=== PATIENT | male | born 1975 | race Caucasian/White ===

== ENCOUNTER 2017-02-18 13:19 | Inpatient (IN) | payer OTHER ==
[2017-02-18 14:46] VITALS: BMI 32.3
--- NOTE | 2017-02-18 16:02 | HP ---
Admission [facility] Chief Complaint: I AM HERE FOR REHAB FORM ALCOHOL Allergies/Adverse Reactions: Allergies Allergy/AdvReac Type Severity Reaction Status Date / Time No Known Allergies Allergy Verified 02/18/17 15:48 History of Present Illness: THIS 41 YEARS OLD MALE WITH ALCOHOL DEPENDENCE,SEEKING REHAB,LAST DETOX TREATMENT [facility] FROM 02/12/17 TO 02/17/17 COMPLETE DETOX ,SEIZURE AND LACERATION OF TONGUE WEIGHT LOSS ANXIETY,DEPRESSION,PTSD LONGEST PERIOD OF SOBRIETY 2 YEARS - Ebola screening Have you traveled outside of the country in the last 21 days: No (N) Have you had contact with anyone from an Ebola affected area: No Have you been sick,other than usual withdrawal symptoms: No Do you have a fever: No - Review of Systems Constitutional: No Symptoms Reported, Unintentional Wgt. Loss EENT: reports: No Symptoms Reported, Nose Congestion, Other (LACERATION OF TONGUE AND LEFT UPPER LIP) Respiratory: reports: No Symptoms reported Cardiac: reports: No Symptoms Reported GI: reports: No Symptoms Reported : reports: No Symptoms Reported Musculoskeletal: reports: No Symptoms Reported Integumentary: reports: No Symptoms Reported Neuro: reports: No Symptoms reported Endocrine: reports: No Symptoms Reported Hematology: reports: No Symptoms Reported Psychiatric: reports: Anxious (PTSD), Depressed Patient History - Patient Medical History Hx Anemia: No Hx Asthma: No Hx Chronic Obstructive Pulmonary Disease (COPD): No Hx Cancer: No Hx Cardiac Disorders: No Hx Congestive Heart Failure: No Hx Hypertension: Yes (CAN'T REMEMBER THE NAME) Hx Hypercholesterolemia: No Hx Pacemaker: No HX Cerebrovascular Accident: No Hx Seizures: Yes (alcohol related at age 21,LAST SEIZURE 02/12/17) Hx Dementia: No Hx Diabetes: No Hx Gastrointestinal Disorders: No Hx Liver Disease: No Hx Genitourinary Disorders: No Hx Sexually Transmitted Disorders: No Hx Renal Disease (ESRD): No Hx Thyroid Disease: No Hx Human Immunodeficiency Virus (HIV): No (negative LAST 02/10/17) Hx Hepatitis C: No Hx Depression: Yes (ON MED) Hx Suicide Attempt: No Hx Bipolar Disorder: Yes Hx Schizophrenia: No Other Medical History: NO SUICIDAL,NO HOMICIDAL - Patient Surgical History Past Surgical History: No Hx Neurologic Surgery: No Hx Cataract Extraction: No Hx Cardiac Surgery: No Hx Lung Surgery: No Hx Breast Surgery: No Hx Breast Biopsy: No Hx Abdominal Surgery: No Hx Appendectomy: No Hx Cholecystectomy: No Hx Genitourinary Surgery: No Hx Section: No Hx Orthopedic Surgery: No Anesthesia Reaction: No - PPD History Previous Implant?: Yes Documented Results: Positive w/o proof Date: 12/27/14 Results: 0 mm PPD to be Administered?: Yes - Smoking Cessation Smoking history: Current every day smoker Have you smoked in the past 12 months: Yes Aproximately how many cigarettes per day: 2 Hx Chewing Tobacco Use: No Initiated information on smoking cessation: Yes 'Breaking Loose' booklet given: 02/18/17 - Substance & Tx. History Hx Alcohol Use: Yes Hx Substance Use: No Substance Use Type: Alcohol Hx Substance Use Treatment: Yes ([facility] 02/12/17 TO 02/17/17) - Substances Abused Alcohol Route: Oral Frequency: Daily Amount used: 1 [place] Age of first use: 17 Date of Last Use: 02/13/17 Family Disease History - Family Disease History Family Disease History: Heart Disease: Mother (HTN) Admission Physical Exam S - Vital Signs Vital Signs: Vital Signs - 24 hr 02/18/17 14:43 Temperature 97.8 F Pulse Rate 110 H Respiratory 18 Rate Blood Pressure 116/78 - Physical General Appearance: Yes: Within Normal Limits, No Apparent Distress, Appropriately Dressed HEENTM: Yes: Normal ENT Inspection, CEASAR, Pharynx Normal, Other (OLD STICHES LEFT UPPER LIP OLD LACERATION OF THE TONGUE) Respiratory: Yes: Lungs Clear, Normal Breath Sounds, No Respiratory Distress Neck: Yes: Within Normal Limits, Supple, Trachea in good position Breast: Yes: Within Normal Limits Cardiology: Yes: Within Normal Limits, Regular Rhythm, Regular Rate, S1, S2 Abdominal: Yes: Within Normal Limits, Normal Bowel Sounds, Non Tender, Flat, Soft Genitourinary: Yes: Within Normal Limits Back: Yes: Within Normal Limits Musculoskeletal: Yes: Within Normal Limits Extremities: Yes: Within Normal Limits Neurological: Yes: stenciler II-XII NML intact, Fully Oriented, Alert, Motor Strength 5/5 Integumentary: Yes: Within Normal Limits Lymphatic: Yes: Within Normal Limits - Diagnostic (1) Alcohol dependence Current Visit: No Status: Acute (2) Hypertension Current Visit: No Status: Chronic Qualifiers: Hypertension type: essential hypertension Qualified Code(s): I10 - Essential (primary) hypertension (3) Nicotine dependence Current Visit: No Status: Chronic Qualifiers: Nicotine product type: cigarettes Substance use status: uncomplicated Qualified Code(s): F17.210 - Nicotine dependence, cigarettes, uncomplicated (4) PTSD (post-traumatic stress disorder) Current Visit: No Status: Chronic (5) Panic disorder with agoraphobia Current Visit: No Status: Chronic (6) Laceration of tongue Current Visit: Yes Status: Acute Cleared for Admission [facility] - Detox or Rehab Claeared for Rehab Admission: Yes [facility] Breath Alcohol Content Breath Alcohol Content: 0 Urine Drug Screen - Results Drug Screen Negative: No Urine Drug Screen Results: BZO-Benzodiazepines Inpatient Rehab Admission - Initial Determination Are CD services needed?: Yes Free of communicable disease: Yes Not in need of hospitalization: Yes - Rehab Admission Criteria Previous failed treatment: Yes Poor recovery environment: Yes Comorbidities: Yes Patient is meeting Inpatient Rehab admission criteria:: Yes
[2017-02-18] MEDS ORDERED: MAGNESIUM HYDROX 2400MG/30ML ORAL SUSPENSION 30 ML CUP PO PRN (16:15)
[2017-02-18] MEDS ORDERED: P-EPHED 60MG/TRIPROLIDI 2.5MG TABLET PO PRN (16:15)
[2017-02-18] MEDS ORDERED: MENTHOL/PHENOL 1 EACH UD MM PRN (16:15)
[2017-02-18] MEDS ORDERED: LOPERAMIDE HCL 2 MG CAPSULE PO PRN (16:15)
[2017-02-18] MEDS: AMOXICILLIN 500 MG CAPSULE (FP) PO SCH ×2 (21:45→22:00)
[2017-02-18] MEDS: FERROUS SO4 325 MG TABLET (FP) PO SCH (21:45)
[2017-02-18] MEDS: THIAMINE HCL 100 MG TABLET (FP) PO SCH (21:45)
[2017-02-18] MEDS ORDERED: TUBERCULIN PPD 5 TU/0.1ML VIAL ID ONE (21:46)
[2017-02-18] MEDS ORDERED: traZODone HCL 100 MG TABLET (FP) PO ONE (22:15)
[2017-02-19 02:26] LABS: URINE APPEARANCE CLEAR; URINE BILIRUBIN NEGATIVE (NEGATIVE); URINE BLOOD NEGATIVE (NEGATIVE); URINE COLOR YELLOW; URINE GLUCOSE (UA) NEGATIVE (NEGATIVE); URINE KETONE NEGATIVE (NEGATIVE); URINE NITRITE NEGATIVE (NEGATIVE); URINE PROTEIN NEGATIVE (NEGATIVE); URINE UROBILINOGEN 0.2 mg/dL (0.2-1.0)
[2017-02-19] MEDS: AMOXICILLIN 500 MG CAPSULE (FP) PO SCH ×3 (06:27→21:36)
[2017-02-19] MEDS: FERROUS SO4 325 MG TABLET (FP) PO SCH ×2 (07:07→16:53)
[2017-02-19] MEDS: TOLNAFTATE 1% CREAM 15 GM TUBE TP SCH ×2 (07:48→21:36)
[2017-02-19 10:12] LABS: MEAN PLT VOLUME 7.8 fl (7.5-11.1); RDW 14.8 % (11.9-15.9)
[2017-02-19 10:14] LABS: MCH 31.8 pg (25.7-33.7); MCHC 33.6 g/dl (32.0-35.9); MEAN CELL VOLUME 94.8 fl (80-96); PLATELET COUNT 253 K/MM3 (134-434); WHITE BLOOD COUNT 4.8 K/mm3 (4.0-10.0)
[2017-02-19] MEDS: amLODIPine BESYLATE 5 MG TABLET (FP) PO SCH (10:16)
[2017-02-19] MEDS: PRENATAL VITAMINS W/ FOLIC ACID TABLET (FP) PO SCH (10:16)
[2017-02-19] MEDS: ZINC SULFATE 220 MG CAPSULE (FP) PO SCH (10:16)
[2017-02-19] MEDS: SERTRALINE HCL 50 MG TABLET (FP) PO SCH (10:31)
[2017-02-19 10:36] LABS: ALBUMIN 3.4 g/dl (3.4-5.0); ALK PHOS 86 U/L (45-117); ANION GAP 8 (8-16); BILIRUBIN,TOTAL 0.6 mg/dL (0.2-1.0); CALCIUM 8.5 mg/dL (8.5-10.1); CO2 25 mmol/L (21-32); GLUCOSE,RANDOM 119 mg/dL (74-106); SGOT/AST 40 U/L (15-37); SGPT/ALT 50 U/L (12-78); TOT PROT 6.8 g/dl (6.4-8.2)
[2017-02-19] MEDS: IBUPROFEN 400 MG TABLET (FP) PO PRN (11:28)
[2017-02-19 11:41] LABS: URINE LEUK ESTERASE Negative (NEGATIVE)
[2017-02-19] MEDS ORDERED: PNEUMOCOCCAL 23 VACCINE 0.5 ML VIAL IM ONE (12:00)
[2017-02-19] MEDS ORDERED: FLU VACCINE QUAD 60 MCG/0.5 ML (MDV 17-18) IM ONE (12:00)
[2017-02-19] MEDS ORDERED: PNEUMOC 13-VAL CONJ-DIP CRM/PF 0.5 ML DISP.SYRIN IM ONE (12:00)
[2017-02-19] MEDS: hydrOXYzine PAMOATE 25 MG CAPSULE (FP) PO PRN (13:17)
[2017-02-19] MEDS: THIAMINE HCL 100 MG TABLET (FP) PO SCH (21:36)
[2017-02-19] MEDS: traZODone HCL 100 MG TABLET (FP) PO SCH (21:37)
--- NOTE | 2017-02-19 22:36 | EKG ---
Test Reason : Blood Pressure : / mmHG Vent. Rate : 090 BPM Atrial Rate : 090 BPM P-R Int : 162 ms QRS Dur : 092 ms QT Int : 358 ms P-R-T Axes : 067 052 050 degrees QTc Int : 437 ms NORMAL SINUS RHYTHM NORMAL ECG NO PREVIOUS ECGS AVAILABLE Confirmed by YARELY AMADOR MD ([id number]) on 02/19/2017 10:36:00 PM Referred By: Confirmed By:YARELY AMADOR MD
[2017-02-20] MEDS: AMOXICILLIN 500 MG CAPSULE (FP) PO SCH ×3 (06:16→21:04)
[2017-02-20] MEDS: FERROUS SO4 325 MG TABLET (FP) PO SCH ×2 (07:34→16:58)
[2017-02-20] MEDS: guaiFENesin/D-METHORPHAN HB 10 ML UNIT-DOSE CUPS PO PRN (08:36)
[2017-02-20] MEDS: IBUPROFEN 400 MG TABLET (FP) PO PRN (08:36)
[2017-02-20] MEDS: amLODIPine BESYLATE 5 MG TABLET (FP) PO SCH (10:19)
[2017-02-20] MEDS: PRENATAL VITAMINS W/ FOLIC ACID TABLET (FP) PO SCH (10:20)
[2017-02-20] MEDS: SERTRALINE HCL 50 MG TABLET (FP) PO SCH (10:20)
[2017-02-20] MEDS: ZINC SULFATE 220 MG CAPSULE (FP) PO SCH (10:20)
[2017-02-20] MEDS: TOLNAFTATE 1% CREAM 15 GM TUBE TP SCH ×2 (10:21→21:05)
[2017-02-20] MEDS: hydrOXYzine PAMOATE 25 MG CAPSULE (FP) PO PRN (10:23)
--- NOTE | 2017-02-20 12:00 | PN ---
S Progress Note Note: pain in the right ear,otitis externa,will stated on cortisporin otic susp q 6 hrs,cont amoxicillin 500 mgs po tid for 7 days
[2017-02-20] MEDS: NEOMYCIN/POLYMYXN/HC OTIC SUSPENSION 10 ML BOTTLE AD SCH ×3 (13:34→23:50)
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
[2017-02-20] MEDS: busPIRone HCL 10 MG TABLET (FP) PO SCH (21:04)
[2017-02-20] MEDS: THIAMINE HCL 100 MG TABLET (FP) PO SCH (21:04)
[2017-02-20] MEDS: GABAPENTIN 100 MG CAPSULE (FP) PO SCH (21:04)
[2017-02-20] MEDS: traZODone HCL 100 MG TABLET (FP) PO SCH (21:04)
[2017-02-21] MEDS: GABAPENTIN 100 MG CAPSULE (FP) PO SCH ×3 (06:33→21:27)
[2017-02-21] MEDS: AMOXICILLIN 500 MG CAPSULE (FP) PO SCH ×3 (06:33→21:52)
[2017-02-21] MEDS: busPIRone HCL 10 MG TABLET (FP) PO SCH ×3 (06:33→21:27)
[2017-02-21] MEDS: ACETAMINOPHEN 325 MG TABLET (FP) PO PRN (06:35)
[2017-02-21] MEDS: NEOMYCIN/POLYMYXN/HC OTIC SUSPENSION 10 ML BOTTLE AD SCH ×4 (06:37→23:01)
[2017-02-21] MEDS: FERROUS SO4 325 MG TABLET (FP) PO SCH ×2 (07:04→17:10)
[2017-02-21] MEDS: PRENATAL VITAMINS W/ FOLIC ACID TABLET (FP) PO SCH (10:49)
[2017-02-21] MEDS: amLODIPine BESYLATE 5 MG TABLET (FP) PO SCH (10:49)
[2017-02-21] MEDS: ZINC SULFATE 220 MG CAPSULE (FP) PO SCH (10:49)
[2017-02-21] MEDS: SERTRALINE HCL 50 MG TABLET (FP) PO SCH (10:49)
[2017-02-21] MEDS: TOLNAFTATE 1% CREAM 15 GM TUBE TP SCH ×2 (10:51→21:27)
[2017-02-21] MEDS: THIAMINE HCL 100 MG TABLET (FP) PO SCH (21:26)
[2017-02-21] MEDS: hydrOXYzine PAMOATE 25 MG CAPSULE (FP) PO PRN (21:26)
[2017-02-21] MEDS: traZODone HCL 100 MG TABLET (FP) PO SCH (21:27)
[2017-02-22] MEDS: busPIRone HCL 10 MG TABLET (FP) PO SCH ×3 (06:45→21:52)
[2017-02-22] MEDS: GABAPENTIN 100 MG CAPSULE (FP) PO SCH ×3 (06:45→21:52)
[2017-02-22] MEDS: IBUPROFEN 400 MG TABLET (FP) PO PRN ×2 (06:45→21:54)
[2017-02-22] MEDS: AMOXICILLIN 500 MG CAPSULE (FP) PO SCH ×3 (06:45→21:52)
[2017-02-22] MEDS: NEOMYCIN/POLYMYXN/HC OTIC SUSPENSION 10 ML BOTTLE AD SCH ×3 (06:51→17:06)
[2017-02-22] MEDS: FERROUS SO4 325 MG TABLET (FP) PO SCH ×2 (07:05→16:50)
[2017-02-22] MEDS: PRENATAL VITAMINS W/ FOLIC ACID TABLET (FP) PO SCH (10:55)
[2017-02-22] MEDS: SERTRALINE HCL 50 MG TABLET (FP) PO SCH (10:55)
[2017-02-22] MEDS: amLODIPine BESYLATE 5 MG TABLET (FP) PO SCH (10:55)
[2017-02-22] MEDS: ZINC SULFATE 220 MG CAPSULE (FP) PO SCH (10:55)
[2017-02-22] MEDS: TOLNAFTATE 1% CREAM 15 GM TUBE TP SCH ×2 (10:55→21:53)
[2017-02-22] MEDS: hydrOXYzine PAMOATE 25 MG CAPSULE (FP) PO PRN ×3 (13:05→21:54)
[2017-02-22] MEDS: traZODone HCL 100 MG TABLET (FP) PO SCH (21:52)
[2017-02-22] MEDS: THIAMINE HCL 100 MG TABLET (FP) PO SCH (21:53)
[2017-02-23] MEDS: NEOMYCIN/POLYMYXN/HC OTIC SUSPENSION 10 ML BOTTLE AD SCH ×5 (00:19→23:03)
[2017-02-23] MEDS: hydrOXYzine PAMOATE 25 MG CAPSULE (FP) PO PRN ×3 (02:04→23:28)
[2017-02-23] MEDS: AMOXICILLIN 500 MG CAPSULE (FP) PO SCH ×3 (06:10→22:02)
[2017-02-23] MEDS: busPIRone HCL 10 MG TABLET (FP) PO SCH ×3 (06:10→22:02)
[2017-02-23] MEDS: GABAPENTIN 100 MG CAPSULE (FP) PO SCH ×3 (06:10→22:02)
[2017-02-23] MEDS: IBUPROFEN 400 MG TABLET (FP) PO PRN ×3 (06:11→20:10)
[2017-02-23] MEDS: FERROUS SO4 325 MG TABLET (FP) PO SCH ×2 (07:00→16:50)
[2017-02-23] MEDS: MAG HYDROX/AL HYDROX/SIMETH 30 ML UNIT-DOSE CUP PO PRN (08:27)
[2017-02-23] MEDS: TOLNAFTATE 1% CREAM 15 GM TUBE TP SCH ×2 (10:27→22:04)
[2017-02-23] MEDS: amLODIPine BESYLATE 5 MG TABLET (FP) PO SCH (10:27)
[2017-02-23] MEDS: ZINC SULFATE 220 MG CAPSULE (FP) PO SCH (10:27)
[2017-02-23] MEDS: SERTRALINE HCL 50 MG TABLET (FP) PO SCH (10:27)
[2017-02-23] MEDS: PRENATAL VITAMINS W/ FOLIC ACID TABLET (FP) PO SCH (10:27)
[2017-02-23] MEDS: traZODone HCL 100 MG TABLET (FP) PO SCH (22:02)
[2017-02-23] MEDS: THIAMINE HCL 100 MG TABLET (FP) PO SCH (22:04)
[2017-02-24] MEDS: busPIRone HCL 10 MG TABLET (FP) PO SCH ×3 (06:14→21:47)
[2017-02-24] MEDS: AMOXICILLIN 500 MG CAPSULE (FP) PO SCH ×3 (06:14→21:48)
[2017-02-24] MEDS: GABAPENTIN 100 MG CAPSULE (FP) PO SCH ×3 (06:55→21:47)
[2017-02-24] MEDS: NEOMYCIN/POLYMYXN/HC OTIC SUSPENSION 10 ML BOTTLE AD SCH ×3 (06:56→17:52)
[2017-02-24] MEDS: FERROUS SO4 325 MG TABLET (FP) PO SCH ×2 (07:38→17:02)
[2017-02-24] MEDS: SERTRALINE HCL 50 MG TABLET (FP) PO SCH (10:27)
[2017-02-24] MEDS: PRENATAL VITAMINS W/ FOLIC ACID TABLET (FP) PO SCH (10:27)
[2017-02-24] MEDS: amLODIPine BESYLATE 5 MG TABLET (FP) PO SCH (10:27)
[2017-02-24] MEDS: ZINC SULFATE 220 MG CAPSULE (FP) PO SCH (10:27)
[2017-02-24] MEDS: TOLNAFTATE 1% CREAM 15 GM TUBE TP SCH ×2 (10:28→21:48)
[2017-02-24] MEDS: hydrOXYzine PAMOATE 25 MG CAPSULE (FP) PO PRN (21:47)
[2017-02-24] MEDS: THIAMINE HCL 100 MG TABLET (FP) PO SCH (21:47)
[2017-02-24] MEDS: traZODone HCL 100 MG TABLET (FP) PO SCH (21:47)
[2017-02-24] MEDS: guaiFENesin/D-METHORPHAN HB 10 ML UNIT-DOSE CUPS PO PRN (21:47)
[2017-02-25] MEDS: NEOMYCIN/POLYMYXN/HC OTIC SUSPENSION 10 ML BOTTLE AD SCH ×5 (01:13→23:09)
[2017-02-25] MEDS: busPIRone HCL 10 MG TABLET (FP) PO SCH ×3 (06:41→21:54)
[2017-02-25] MEDS: AMOXICILLIN 500 MG CAPSULE (FP) PO SCH ×2 (06:41→14:07)
[2017-02-25] MEDS: GABAPENTIN 100 MG CAPSULE (FP) PO SCH (06:41)
[2017-02-25] MEDS: MAG HYDROX/AL HYDROX/SIMETH 30 ML UNIT-DOSE CUP PO PRN (07:37)
[2017-02-25] MEDS: FERROUS SO4 325 MG TABLET (FP) PO SCH ×2 (07:37→16:44)
[2017-02-25] MEDS: SERTRALINE HCL 50 MG TABLET (FP) PO SCH (10:28)
[2017-02-25] MEDS: PRENATAL VITAMINS W/ FOLIC ACID TABLET (FP) PO SCH (10:28)
[2017-02-25] MEDS: amLODIPine BESYLATE 5 MG TABLET (FP) PO SCH (10:29)
[2017-02-25] MEDS: ZINC SULFATE 220 MG CAPSULE (FP) PO SCH (10:30)
[2017-02-25] MEDS: TOLNAFTATE 1% CREAM 15 GM TUBE TP SCH ×2 (10:30→21:54)
--- NOTE | 2017-02-25 10:39 | PN ---
[facility] Progress Note (SOAP) Subjective: c/ochronicmiddlebackpains/bQAZc6ygwxztzq,advilnoteffectives/ pleftshouldersurgery2/2overuseinjury Objective: 02/25/17 10:37 Vital Signs - 8 hr 02/25/17 02/25/17 03:30 07:29 Temperature 97.1 F L Pulse Rate 76 Respiratory 18 18 Rate Blood Pressure 130/84 Laboratory Tests 02/18/17 02/19/17 02/19/17 22:50 09:00 09:00 WBC 4.8 D RBC 4.13 D Hgb 13.1 D Hct 39.1 D MCV 94.8 MCH 31.8 MCHC 33.6 RDW 14.8 D Plt Count 253 D MPV 7.8 Sodium 139 Potassium 3.9 Chloride 106 Carbon Dioxide 25 D Anion Gap 8 BUN 7 Creatinine 1.0 D Creat Clearance w eGFR > 60 Random Glucose 119 H Calcium 8.5 Total Bilirubin 0.6 D AST 40 H D ALT 50 D Alkaline Phosphatase 86 D Total Protein 6.8 Albumin 3.4 D Urine Color Yellow Urine Appearance Clear Urine pH 5.0 Ur Specific [place] 1.025 Urine Protein Negative Urine Glucose (UA) Negative Urine Ketones Negative Urine Blood Negative Urine Nitrite Negative Urine Bilirubin Negative Urine Urobilinogen 0.2 Ur Leukocyte Esterase Negative RPR Titer 02/19/17 09:00 WBC RBC Hgb Hct MCV MCH MCHC RDW Plt Count MPV Sodium Potassium Chloride Carbon Dioxide Anion Gap BUN Creatinine Creat Clearance w eGFR Random Glucose Calcium Total Bilirubin AST ALT Alkaline Phosphatase Total Protein Albumin Urine Color Urine Appearance Urine pH Ur Specific [place] Urine Protein Urine Glucose (UA) Urine Ketones Urine Blood Urine Nitrite Urine Bilirubin Urine Urobilinogen Ur Leukocyte Esterase RPR Titer Nonreactive mobilizingwithoutassistancetendermidback Assessment: 02/25/17 10:38 chronicbackandleftshoulderpaind/cadvilnaprosynatcwprotonix, flexerilneurontinwilltitiratetoeffect.
[2017-02-25] MEDS: GABAPENTIN 400 MG CAPSULE (FP) PO SCH ×3 (11:04→21:54)
[2017-02-25] MEDS: NAPROXEN 500 MG TABLET (FP) PO SCH ×2 (11:04→21:53)
[2017-02-25] MEDS: PANTOPRAZOLE 40 MG TABLET (FP) PO SCH (11:04)
[2017-02-25] MEDS: traZODone HCL 100 MG TABLET (FP) PO SCH (21:53)
[2017-02-25] MEDS: THIAMINE HCL 100 MG TABLET (FP) PO SCH (21:53)
[2017-02-25] MEDS: AMITRIPTYLINE HCL 25 MG TABLET (FP) PO SCH (21:54)
[2017-02-26] MEDS: NEOMYCIN/POLYMYXN/HC OTIC SUSPENSION 10 ML BOTTLE AD SCH ×4 (06:37→23:25)
[2017-02-26] MEDS: busPIRone HCL 10 MG TABLET (FP) PO SCH ×3 (06:37→21:50)
[2017-02-26] MEDS: GABAPENTIN 400 MG CAPSULE (FP) PO SCH ×3 (06:37→21:50)
[2017-02-26] MEDS: FERROUS SO4 325 MG TABLET (FP) PO SCH ×2 (08:01→16:33)
[2017-02-26] MEDS: PRENATAL VITAMINS W/ FOLIC ACID TABLET (FP) PO SCH (10:46)
[2017-02-26] MEDS: TOLNAFTATE 1% CREAM 15 GM TUBE TP SCH ×2 (10:46→21:53)
[2017-02-26] MEDS: ZINC SULFATE 220 MG CAPSULE (FP) PO SCH (10:46)
[2017-02-26] MEDS: PANTOPRAZOLE 40 MG TABLET (FP) PO SCH (10:46)
[2017-02-26] MEDS: SERTRALINE HCL 50 MG TABLET (FP) PO SCH (10:46)
[2017-02-26] MEDS: NAPROXEN 500 MG TABLET (FP) PO SCH ×2 (10:47→21:50)
[2017-02-26] MEDS: amLODIPine BESYLATE 5 MG TABLET (FP) PO SCH (10:47)
--- NOTE | 2017-02-26 14:48 | PN ---
B[facility] Progress Note (SOAP) Subjective: pain and insomnia controled now c/o consitaption Objective: 02/26/17 14:46 Vital Signs - 8 hr 02/26/17 02/26/17 07:02 08:46 Temperature 98.1 F Pulse Rate 87 108 H Respiratory 18 Rate Blood Pressure 134/91 126/64 Laboratory Tests 02/18/17 02/19/17 02/19/17 22:50 09:00 09:00 WBC 4.8 D RBC 4.13 D Hgb 13.1 D Hct 39.1 D MCV 94.8 MCH 31.8 MCHC 33.6 RDW 14.8 D Plt Count 253 D MPV 7.8 Sodium 139 Potassium 3.9 Chloride 106 Carbon Dioxide 25 D Anion Gap 8 BUN 7 Creatinine 1.0 D Creat Clearance w eGFR > 60 Random Glucose 119 H Calcium 8.5 Total Bilirubin 0.6 D AST 40 H D ALT 50 D Alkaline Phosphatase 86 D Total Protein 6.8 Albumin 3.4 D Urine Color Yellow Urine Appearance Clear Urine pH 5.0 Ur Specific [place] 1.025 Urine Protein Negative Urine Glucose (UA) Negative Urine Ketones Negative Urine Blood Negative Urine Nitrite Negative Urine Bilirubin Negative Urine Urobilinogen 0.2 Ur Leukocyte Esterase Negative RPR Titer 02/19/17 09:00 WBC RBC Hgb Hct MCV MCH MCHC RDW Plt Count MPV Sodium Potassium Chloride Carbon Dioxide Anion Gap BUN Creatinine Creat Clearance w eGFR Random Glucose Calcium Total Bilirubin AST ALT Alkaline Phosphatase Total Protein Albumin Urine Color Urine Appearance Urine pH Ur Specific [place] Urine Protein Urine Glucose (UA) Urine Ketones Urine Blood Urine Nitrite Urine Bilirubin Urine Urobilinogen Ur Leukocyte Esterase RPR Titer Nonreactive nad, ambulation without assistance, a and o x3 Assessment: 02/26/17 14:47 htn controlled, back paina d insomnia controlled, medication induced constiaption laxatives ordered.
--- NOTE | 2017-02-26 14:58 | PN ---
Psychiatric Progress Note Vital Signs: Vital Signs Period Temp Pulse Resp BP Sys/Moore Pulse Ox Last 24 Hr 98.1 F 87-108 18-18 126-134/64-91 Date of Session: 02/26/17 Chief Complaint:: "insomnia" HPI: Patient is addressing alcoohol dependence comrbid PTSD, Panic disorder with agoraphobia and Bipolar II disorder. ROS: HTN medically managed. Current Medications: Active Medications Generic Name Dose Route Start Last Admin Trade Name Freq PRN Reason Stop Dose Admin Acetaminophen 650 mg 02/18/17 16:15 02/21/17 06:35 Tylenol - PO 650 mg Q4H PRN Administration PAIN Al Hydroxide/Mg Hydroxide 30 ml 02/18/17 16:15 02/25/17 07:37 Mylanta Oral Suspension - PO 30 ml Q6H PRN Administration DYSPEPSIA Amitriptyline HCl 25 mg 02/25/17 22:00 02/25/17 21:54 Elavil - PO 25 mg HS CHRISTOS Administration Amlodipine Besylate 5 mg 02/19/17 10:00 02/26/17 10:47 Norvasc - PO 5 mg DAILY CHRISTOS Administration Buspirone HCl 10 mg 02/20/17 22:00 02/26/17 14:20 Buspar - PO 10 mg TID CHRISTOS Administration Eucalyptus/Menthol/Phenol/Sorbitol 1 each 02/18/17 16:15 02/20/17 08:36 Cepastat Lozenge - MM 1 each Q4H PRN Administration SORE THROAT Ferrous Sulfate 325 mg 02/18/17 17:30 02/26/17 08:01 Feosol - PO 325 mg BIDWM CHRISTOS Administration Gabapentin 400 mg 02/25/17 11:15 02/26/17 14:20 Neurontin - PO 400 mg TID CHRISTOS Administration Guaifenesin 10 ml 02/18/17 16:15 02/24/17 21:47 Robitussin Dm - PO 10 ml Q6H PRN Administration COUGH Hydroxyzine Pamoate 25 mg 02/18/17 16:15 02/24/17 21:47 Vistaril - PO 25 mg Q4H PRN Administration AGITATION Loperamide HCl 4 mg 02/18/17 16:15 Imodium - PO Q6H PRN DIARRHEA Magnesium Citrate 300 ml 02/18/17 16:15 Citroma - PO Q48H PRN CONSTIPATION Magnesium Hydroxide 30 ml 02/18/17 16:15 02/26/17 10:50 Milk Of Magnesia - PO 30 ml DAILY PRN Administration CONSTIPATION Naproxen 500 mg 02/25/17 11:15 02/26/17 10:47 Naprosyn - PO 500 mg BID CHRISTOS Administration Neomycin/Polymyxin/Hydrocortisone 4 drop 02/20/17 12:00 02/26/17 12:24 Cortisporin Otic Suspenstion - AD 03/02/17 11:59 4 drop Q6HPO CHRISTOS Administration Pantoprazole Sodium 40 mg 02/25/17 11:15 02/26/17 10:46 Protonix - PO 40 mg DAILY CHRISTOS Administration Multivit/Folic Acid/Iron 1 tab 02/19/17 10:00 02/26/17 10:46 Vitamins (Sjr) - PO 1 tab DAILY CHRISTOS Administration Pseudoephedrine/Triprolidine 1 combo 02/18/17 16:15 Actifed - PO TID PRN NASAL CONGESTION Sertraline HCl 100 mg 02/19/17 10:30 02/26/17 10:46 Zoloft - PO 100 mg DAILY CHRISTOS Administration Thiamine HCl 100 mg 02/18/17 22:00 02/25/17 21:53 Vitamin B1 - PO 100 mg HS CHRISTOS Administration Tolnaftate 1 applic 02/19/17 07:30 02/26/17 10:46 Tinactin 1% Cream - TP 1 applic BID CHRISTOS Administration Trazodone HCl 150 mg 02/26/17 14:52 Desyrel - PO HS CHRISTOS Zinc Sulfate 220 mg 02/19/17 10:00 02/26/17 10:46 Orazinc - PO 220 mg DAILY CHRISTOS Administration Current Side Effect: No Lab tests ordered: No Lab tests reviewed: Yes Provider note:: Patient c/o difficulty to fall and maintain sleep, states he sleeps 2 -3 hrs the most, he currently on Trazodone 100 mg po hs, no side- effects reported, will increase 150 mg po hs, continue to monitor progress. Total face to face time:: 15 Mental Status Exam - Mental Status Exam Alert and Oriented to: Time, Place, Person Cognitive Function: Grossly Intact Patient Appearance: Well Groomed Mood: Anxious Affect: Appropriate, Mood Congruent Patient Behavior: Appropriate, Cooperative Speech Pattern: Clear Voice Loudness: Normal Thought Process: Goal Oriented Thought Disorder: Not Present Hallucinations: Denies Suicidal Ideation: Denies Homicidal Ideation: Denies Insight/Judgement: Fair Sleep: Poorly, Difficulty falling asleep Appetite: Good Muscle strength/Tone: Normal Gait/Station: Normal Psychiatric Treatment Plan - Problem List (1) Alcohol dependence Current Visit: No (2) Bipolar II disorder Current Visit: No (3) PTSD (post-traumatic stress disorder) Current Visit: No (4) Panic disorder with agoraphobia Current Visit: No
[2017-02-26] MEDS: MAGNESIUM CITRATE 300 ML BOTTLE PO PRN (19:58)
[2017-02-26] MEDS: THIAMINE HCL 100 MG TABLET (FP) PO SCH (21:50)
[2017-02-26] MEDS: AMITRIPTYLINE HCL 25 MG TABLET (FP) PO SCH (21:50)
[2017-02-26] MEDS: traZODone HCL 50 MG TABLET (FP) PO SCH (21:51)
[2017-02-26] MEDS: DOCUSATE SODIUM 100 MG CAPSULE (FP) PO SCH (21:52)
[2017-02-27] MEDS: GABAPENTIN 400 MG CAPSULE (FP) PO SCH ×3 (06:08→21:41)
[2017-02-27] MEDS: busPIRone HCL 10 MG TABLET (FP) PO SCH ×3 (06:08→21:41)
[2017-02-27] MEDS: NEOMYCIN/POLYMYXN/HC OTIC SUSPENSION 10 ML BOTTLE AD SCH ×3 (06:11→17:45)
[2017-02-27] MEDS: FERROUS SO4 325 MG TABLET (FP) PO SCH ×2 (07:03→16:48)
[2017-02-27] MEDS: PRENATAL VITAMINS W/ FOLIC ACID TABLET (FP) PO SCH (10:19)
[2017-02-27] MEDS: NAPROXEN 500 MG TABLET (FP) PO SCH ×2 (10:19→21:41)
[2017-02-27] MEDS: amLODIPine BESYLATE 5 MG TABLET (FP) PO SCH (10:19)
[2017-02-27] MEDS: TOLNAFTATE 1% CREAM 15 GM TUBE TP SCH ×2 (10:19→21:42)
[2017-02-27] MEDS: PANTOPRAZOLE 40 MG TABLET (FP) PO SCH (10:19)
[2017-02-27] MEDS: SERTRALINE HCL 50 MG TABLET (FP) PO SCH (10:19)
[2017-02-27] MEDS: ZINC SULFATE 220 MG CAPSULE (FP) PO SCH (10:19)
--- NOTE | 2017-02-27 15:16 | PN ---
BHS Progress Note (SOAP) Subjective: c/o continued alcohol withdrwal tremors , anxiety and other symptoms Objective: 02/27/17 15:15 Vital Signs - 24 hr 02/27/17 02/27/17 02/27/17 03:30 07:14 10:54 Temperature 97.3 F L Pulse Rate 88 96 H Respiratory 18 18 Rate Blood Pressure 130/72 112/69 Laboratory Tests 02/18/17 02/19/17 02/19/17 22:50 09:00 09:00 WBC 4.8 D RBC 4.13 D Hgb 13.1 D Hct 39.1 D MCV 94.8 MCH 31.8 MCHC 33.6 RDW 14.8 D Plt Count 253 D MPV 7.8 Sodium 139 Potassium 3.9 Chloride 106 Carbon Dioxide 25 D Anion Gap 8 BUN 7 Creatinine 1.0 D Creat Clearance w eGFR > 60 Random Glucose 119 H Calcium 8.5 Total Bilirubin 0.6 D AST 40 H D ALT 50 D Alkaline Phosphatase 86 D Total Protein 6.8 Albumin 3.4 D Urine Color Yellow Urine Appearance Clear Urine pH 5.0 Ur Specific [place] 1.025 Urine Protein Negative Urine Glucose (UA) Negative Urine Ketones Negative Urine Blood Negative Urine Nitrite Negative Urine Bilirubin Negative Urine Urobilinogen 0.2 Ur Leukocyte Esterase Negative RPR Titer 02/19/17 09:00 WBC RBC Hgb Hct MCV MCH MCHC RDW Plt Count MPV Sodium Potassium Chloride Carbon Dioxide Anion Gap BUN Creatinine Creat Clearance w eGFR Random Glucose Calcium Total Bilirubin AST ALT Alkaline Phosphatase Total Protein Albumin Urine Color Urine Appearance Urine pH Ur Specific [place] Urine Protein Urine Glucose (UA) Urine Ketones Urine Blood Urine Nitrite Urine Bilirubin Urine Urobilinogen Ur Leukocyte Esterase RPR Titer Nonreactive Home Medication List Medication Instructions Recorded Confirmed Type Amlodipine Besylate [Norvasc -] 5 mg PO DAILY 02/18/17 02/18/17 History Clonazepam [Klonopin -] 0.5 mg PO BID 02/18/17 02/18/17 History Ferrous Sulfate Liquid [Feosol 220 mg PO DAILY 02/18/17 02/18/17 History Liquid] Folic Acid - 1 mg PO DAILY 02/18/17 02/18/17 History Multivitamin [Poly-Vitamin] 1 each PO DAILY 02/18/17 02/18/17 History Sertraline HCl [Zoloft -] 100 mg PO DAILY 02/18/17 02/18/17 History Trazodone HCl [Desyrel -] 100 mg PO HS 02/18/17 02/18/17 History Active Medications Generic Name Dose Route Start Last Admin Trade Name Freq PRN Reason Stop Dose Admin Acetaminophen 650 mg 02/18/17 16:15 02/21/17 06:35 Tylenol - PO 650 mg Q4H PRN Administration PAIN Al Hydroxide/Mg Hydroxide 30 ml 02/18/17 16:15 02/25/17 07:37 Mylanta Oral Suspension - PO 30 ml Q6H PRN Administration DYSPEPSIA Amitriptyline HCl 25 mg 02/25/17 22:00 02/26/17 21:50 Elavil - PO 25 mg HS CHRISTOS Administration Amlodipine Besylate 5 mg 02/19/17 10:00 02/27/17 10:19 Norvasc - PO 5 mg DAILY CHRISTOS Administration Buspirone HCl 10 mg 02/20/17 22:00 02/27/17 14:09 Buspar - PO 10 mg TID CHRISTOS Administration Docusate Sodium 300 mg 02/26/17 22:00 02/26/17 21:52 Colace - PO 300 mg HS CHRISTOS Administration Eucalyptus/Menthol/Phenol/Sorbitol 1 each 02/18/17 16:15 02/20/17 08:36 Cepastat Lozenge - MM 1 each Q4H PRN Administration SORE THROAT Ferrous Sulfate 325 mg 02/18/17 17:30 02/27/17 07:03 Feosol - PO 325 mg BIDWM CHRISTOS Administration Gabapentin 400 mg 02/25/17 11:15 02/27/17 14:09 Neurontin - PO 400 mg TID CHRISTOS Administration Guaifenesin 10 ml 02/18/17 16:15 02/24/17 21:47 Robitussin Dm - PO 10 ml Q6H PRN Administration COUGH Hydroxyzine HCl 50 mg 02/27/17 15:13 Atarax - PO TID PRN FOR ITCHING Loperamide HCl 4 mg 02/18/17 16:15 Imodium - PO Q6H PRN DIARRHEA Magnesium Citrate 300 ml 02/18/17 16:15 02/26/17 19:58 Citroma - PO 300 ml Q48H PRN Administration CONSTIPATION Magnesium Hydroxide 30 ml 02/18/17 16:15 02/26/17 10:50 Milk Of Magnesia - PO 30 ml DAILY PRN Administration CONSTIPATION Naproxen 500 mg 02/25/17 11:15 02/27/17 10:19 Naprosyn - PO 500 mg BID CHRISTOS Administration Neomycin/Polymyxin/Hydrocortisone 4 drop 02/20/17 12:00 02/27/17 12:01 Cortisporin Otic Suspenstion - AD 03/02/17 11:59 4 drop Q6HPO CHRISTOS Administration Pantoprazole Sodium 40 mg 02/25/17 11:15 02/27/17 10:19 Protonix - PO 40 mg DAILY CHRISTOS Administration Multivit/Folic Acid/Iron 1 tab 02/19/17 10:00 02/27/17 10:19 Vitamins (Sjr) - PO 1 tab DAILY CHRISTOS Administration Pseudoephedrine/Triprolidine 1 combo 02/18/17 16:15 Actifed - PO TID PRN NASAL CONGESTION Sertraline HCl 100 mg 02/19/17 10:30 02/27/17 10:19 Zoloft - PO 100 mg DAILY CHRISTOS Administration Thiamine HCl 100 mg 02/18/17 22:00 02/26/17 21:50 Vitamin B1 - PO 100 mg HS CHRISTOS Administration Tolnaftate 1 applic 02/19/17 07:30 02/27/17 10:19 Tinactin 1% Cream - TP 1 applic BID CHRISTOS Administration Trazodone HCl 150 mg 02/26/17 22:00 02/26/17 21:51 Desyrel - PO 150 mg HS CHRISTOS Administration Zinc Sulfate 220 mg 02/19/17 10:00 02/27/17 10:19 Orazinc - PO 220 mg DAILY CHRISTOS Administration pain controlled on current medication regimen Assessment: 02/27/17 15:16 alcohol withsarahy sx, start scheduled hydroxyzone 50mg tid, patient aware and in agreement
[2017-02-27] MEDS: DOCUSATE SODIUM 100 MG CAPSULE (FP) PO SCH (21:41)
[2017-02-27] MEDS: AMITRIPTYLINE HCL 25 MG TABLET (FP) PO SCH (21:41)
[2017-02-27] MEDS: THIAMINE HCL 100 MG TABLET (FP) PO SCH (21:41)
[2017-02-27] MEDS: traZODone HCL 50 MG TABLET (FP) PO SCH (21:41)
[2017-02-27] MEDS: hydrOXYzine HCL 25 MG TABLET (FP) PO PRN (21:49)
[2017-02-28] MEDS: NEOMYCIN/POLYMYXN/HC OTIC SUSPENSION 10 ML BOTTLE AD SCH ×5 (00:55→23:04)
[2017-02-28] MEDS: GABAPENTIN 400 MG CAPSULE (FP) PO SCH ×3 (06:45→21:51)
[2017-02-28] MEDS: busPIRone HCL 10 MG TABLET (FP) PO SCH ×3 (06:45→21:49)
[2017-02-28] MEDS: FERROUS SO4 325 MG TABLET (FP) PO SCH ×2 (07:22→16:38)
[2017-02-28] MEDS: PRENATAL VITAMINS W/ FOLIC ACID TABLET (FP) PO SCH (10:14)
[2017-02-28] MEDS: ZINC SULFATE 220 MG CAPSULE (FP) PO SCH (10:14)
[2017-02-28] MEDS: SERTRALINE HCL 50 MG TABLET (FP) PO SCH (10:14)
[2017-02-28] MEDS: NAPROXEN 500 MG TABLET (FP) PO SCH ×2 (10:14→21:49)
[2017-02-28] MEDS: PANTOPRAZOLE 40 MG TABLET (FP) PO SCH (10:14)
[2017-02-28] MEDS: amLODIPine BESYLATE 5 MG TABLET (FP) PO SCH (10:14)
[2017-02-28] MEDS: TOLNAFTATE 1% CREAM 15 GM TUBE TP SCH ×2 (10:15→21:52)
[2017-02-28] MEDS: ACETAMINOPHEN 325 MG TABLET (FP) PO PRN (14:06)
[2017-02-28] MEDS: DOCUSATE SODIUM 100 MG CAPSULE (FP) PO SCH (21:48)
[2017-02-28] MEDS: traZODone HCL 50 MG TABLET (FP) PO SCH (21:49)
[2017-02-28] MEDS: THIAMINE HCL 100 MG TABLET (FP) PO SCH (21:50)
[2017-02-28] MEDS: AMITRIPTYLINE HCL 25 MG TABLET (FP) PO SCH (21:51)
[2017-03-01] MEDS: hydrOXYzine HCL 25 MG TABLET (FP) PO PRN (03:36)
[2017-03-01] MEDS: busPIRone HCL 10 MG TABLET (FP) PO SCH ×3 (06:05→21:49)
[2017-03-01] MEDS: GABAPENTIN 400 MG CAPSULE (FP) PO SCH ×3 (06:05→21:48)
[2017-03-01] MEDS: NEOMYCIN/POLYMYXN/HC OTIC SUSPENSION 10 ML BOTTLE AD SCH ×4 (06:06→23:13)
[2017-03-01] MEDS: FERROUS SO4 325 MG TABLET (FP) PO SCH ×2 (07:03→16:41)
[2017-03-01] MEDS: PRENATAL VITAMINS W/ FOLIC ACID TABLET (FP) PO SCH (10:43)
[2017-03-01] MEDS: amLODIPine BESYLATE 5 MG TABLET (FP) PO SCH (10:43)
[2017-03-01] MEDS: ZINC SULFATE 220 MG CAPSULE (FP) PO SCH (10:43)
[2017-03-01] MEDS: NAPROXEN 500 MG TABLET (FP) PO SCH ×2 (10:43→21:49)
[2017-03-01] MEDS: TOLNAFTATE 1% CREAM 15 GM TUBE TP SCH ×2 (10:43→21:50)
[2017-03-01] MEDS: SERTRALINE HCL 50 MG TABLET (FP) PO SCH (10:43)
[2017-03-01] MEDS: PANTOPRAZOLE 40 MG TABLET (FP) PO SCH (10:43)
[2017-03-01] MEDS: traZODone HCL 50 MG TABLET (FP) PO SCH (21:48)
[2017-03-01] MEDS: DOCUSATE SODIUM 100 MG CAPSULE (FP) PO SCH (21:49)
[2017-03-01] MEDS: THIAMINE HCL 100 MG TABLET (FP) PO SCH (21:49)
[2017-03-01] MEDS: AMITRIPTYLINE HCL 25 MG TABLET (FP) PO SCH (21:49)
[2017-03-02] MEDS: GABAPENTIN 400 MG CAPSULE (FP) PO SCH ×3 (06:13→21:48)
[2017-03-02] MEDS: busPIRone HCL 10 MG TABLET (FP) PO SCH ×3 (06:13→21:49)
[2017-03-02] MEDS: NEOMYCIN/POLYMYXN/HC OTIC SUSPENSION 10 ML BOTTLE AD SCH (06:52)
[2017-03-02] MEDS: FERROUS SO4 325 MG TABLET (FP) PO SCH (07:18)
[2017-03-02] MEDS: ZINC SULFATE 220 MG CAPSULE (FP) PO SCH (10:36)
[2017-03-02] MEDS: SERTRALINE HCL 50 MG TABLET (FP) PO SCH (10:36)
[2017-03-02] MEDS: NAPROXEN 500 MG TABLET (FP) PO SCH ×2 (10:36→21:49)
[2017-03-02] MEDS: amLODIPine BESYLATE 5 MG TABLET (FP) PO SCH (10:37)
[2017-03-02] MEDS: PRENATAL VITAMINS W/ FOLIC ACID TABLET (FP) PO SCH (10:37)
[2017-03-02] MEDS: PANTOPRAZOLE 40 MG TABLET (FP) PO SCH (10:37)
[2017-03-02] MEDS: TOLNAFTATE 1% CREAM 15 GM TUBE TP SCH ×2 (10:37→21:51)
--- NOTE | 2017-03-02 10:37 | PN ---
BHS Progress Note (SOAP) Subjective: patient c/o constipation and bloating, unrelieved by current medication regiemen , citroma reportedly helpful Objective: 03/02/17 10:35 Vital Signs - 8 hr 03/02/17 03/02/17 03:30 07:22 Temperature 98.2 F Pulse Rate 82 Respiratory 18 18 Rate Blood Pressure 116/82 Laboratory Tests 02/18/17 02/19/17 02/19/17 22:50 09:00 09:00 WBC 4.8 D RBC 4.13 D Hgb 13.1 D Hct 39.1 D MCV 94.8 MCH 31.8 MCHC 33.6 RDW 14.8 D Plt Count 253 D MPV 7.8 Sodium 139 Potassium 3.9 Chloride 106 Carbon Dioxide 25 D Anion Gap 8 BUN 7 Creatinine 1.0 D Creat Clearance w eGFR > 60 Random Glucose 119 H Calcium 8.5 Total Bilirubin 0.6 D AST 40 H D ALT 50 D Alkaline Phosphatase 86 D Total Protein 6.8 Albumin 3.4 D Urine Color Yellow Urine Appearance Clear Urine pH 5.0 Ur Specific [place] 1.025 Urine Protein Negative Urine Glucose (UA) Negative Urine Ketones Negative Urine Blood Negative Urine Nitrite Negative Urine Bilirubin Negative Urine Urobilinogen 0.2 Ur Leukocyte Esterase Negative RPR Titer 02/19/17 09:00 WBC RBC Hgb Hct MCV MCH MCHC RDW Plt Count MPV Sodium Potassium Chloride Carbon Dioxide Anion Gap BUN Creatinine Creat Clearance w eGFR Random Glucose Calcium Total Bilirubin AST ALT Alkaline Phosphatase Total Protein Albumin Urine Color Urine Appearance Urine pH Ur Specific [place] Urine Protein Urine Glucose (UA) Urine Ketones Urine Blood Urine Nitrite Urine Bilirubin Urine Urobilinogen Ur Leukocyte Esterase RPR Titer Nonreactive no anemia noted Assessment: 03/02/17 10:36 iron deficiency anemia resolved, symptoms of constipation and bloating may be related to iron pills will d/c iron supplement s at this time add snna and simethicone for gi symptoms.
[2017-03-02] MEDS: SIMETHICONE 80 MG TAB.CHEW (FP) PO PRN ×2 (14:15→21:49)
[2017-03-02] MEDS: DOCUSATE SODIUM 100 MG CAPSULE (FP) PO SCH (21:48)
[2017-03-02] MEDS: THIAMINE HCL 100 MG TABLET (FP) PO SCH (21:48)
[2017-03-02] MEDS: SENNOSIDES 8.6MG TABLET (FP) PO SCH (21:48)
[2017-03-02] MEDS: AMITRIPTYLINE HCL 25 MG TABLET (FP) PO SCH (21:49)
[2017-03-02] MEDS: traZODone HCL 50 MG TABLET (FP) PO SCH (21:49)
[2017-03-03] MEDS: GABAPENTIN 400 MG CAPSULE (FP) PO SCH ×3 (06:05→21:55)
[2017-03-03] MEDS: busPIRone HCL 10 MG TABLET (FP) PO SCH ×2 (06:05→14:16)
[2017-03-03] MEDS: amLODIPine BESYLATE 5 MG TABLET (FP) PO SCH (10:55)
[2017-03-03] MEDS: PRENATAL VITAMINS W/ FOLIC ACID TABLET (FP) PO SCH (10:55)
[2017-03-03] MEDS: PANTOPRAZOLE 40 MG TABLET (FP) PO SCH (10:55)
[2017-03-03] MEDS: SERTRALINE HCL 50 MG TABLET (FP) PO SCH (10:55)
[2017-03-03] MEDS: NAPROXEN 500 MG TABLET (FP) PO SCH ×2 (10:55→21:55)
[2017-03-03] MEDS: ZINC SULFATE 220 MG CAPSULE (FP) PO SCH (10:56)
[2017-03-03] MEDS: TOLNAFTATE 1% CREAM 15 GM TUBE TP SCH ×2 (10:56→21:56)
[2017-03-03] MEDS: SIMETHICONE 80 MG TAB.CHEW (FP) PO PRN (10:58)
--- NOTE | 2017-03-03 14:26 | PN ---
S Progress Note Note: Patient c/o anxiety and hand tremors, reviewed medications, will increase Buspar 15 mg po tid.
[2017-03-03] MEDS: DOCUSATE SODIUM 100 MG CAPSULE (FP) PO SCH (21:54)
[2017-03-03] MEDS: SENNOSIDES 8.6MG TABLET (FP) PO SCH (21:55)
[2017-03-03] MEDS: traZODone HCL 50 MG TABLET (FP) PO SCH (21:55)
[2017-03-03] MEDS: THIAMINE HCL 100 MG TABLET (FP) PO SCH (21:55)
[2017-03-03] MEDS: AMITRIPTYLINE HCL 25 MG TABLET (FP) PO SCH (21:55)
[2017-03-04] MEDS: GABAPENTIN 400 MG CAPSULE (FP) PO SCH ×3 (06:06→22:01)
[2017-03-04] MEDS: TOLNAFTATE 1% CREAM 15 GM TUBE TP SCH ×2 (10:24→22:02)
[2017-03-04] MEDS: SERTRALINE HCL 50 MG TABLET (FP) PO SCH (10:24)
[2017-03-04] MEDS: amLODIPine BESYLATE 5 MG TABLET (FP) PO SCH (10:24)
[2017-03-04] MEDS: PANTOPRAZOLE 40 MG TABLET (FP) PO SCH (10:24)
[2017-03-04] MEDS: SIMETHICONE 80 MG TAB.CHEW (FP) PO PRN (10:24)
[2017-03-04] MEDS: NAPROXEN 500 MG TABLET (FP) PO SCH ×2 (10:24→22:00)
[2017-03-04] MEDS: PRENATAL VITAMINS W/ FOLIC ACID TABLET (FP) PO SCH (10:24)
[2017-03-04] MEDS: ZINC SULFATE 220 MG CAPSULE (FP) PO SCH (10:24)
[2017-03-04] MEDS: hydrOXYzine HCL 25 MG TABLET (FP) PO PRN (10:26)
--- NOTE | 2017-03-04 12:26 | PN ---
[facility] Progress Note (SOAP) Subjective: c/o unable to hear right hear no pain fever or ln noted was on antibioitc s recently for ear infection Objective: 03/04/17 12:25 Vital Signs - 8 hr 03/04/17 07:08 Temperature 97.2 F L Pulse Rate 79 Respiratory 18 Rate Blood Pressure 123/81 Laboratory Tests 02/18/17 02/19/17 02/19/17 22:50 09:00 09:00 WBC 4.8 D RBC 4.13 D Hgb 13.1 D Hct 39.1 D MCV 94.8 MCH 31.8 MCHC 33.6 RDW 14.8 D Plt Count 253 D MPV 7.8 Sodium 139 Potassium 3.9 Chloride 106 Carbon Dioxide 25 D Anion Gap 8 BUN 7 Creatinine 1.0 D Creat Clearance w eGFR > 60 Random Glucose 119 H Calcium 8.5 Total Bilirubin 0.6 D AST 40 H D ALT 50 D Alkaline Phosphatase 86 D Total Protein 6.8 Albumin 3.4 D Urine Color Yellow Urine Appearance Clear Urine pH 5.0 Ur Specific [place] 1.025 Urine Protein Negative Urine Glucose (UA) Negative Urine Ketones Negative Urine Blood Negative Urine Nitrite Negative Urine Bilirubin Negative Urine Urobilinogen 0.2 Ur Leukocyte Esterase Negative RPR Titer 02/19/17 09:00 WBC RBC Hgb Hct MCV MCH MCHC RDW Plt Count MPV Sodium Potassium Chloride Carbon Dioxide Anion Gap BUN Creatinine Creat Clearance w eGFR Random Glucose Calcium Total Bilirubin AST ALT Alkaline Phosphatase Total Protein Albumin Urine Color Urine Appearance Urine pH Ur Specific [place] Urine Protein Urine Glucose (UA) Urine Ketones Urine Blood Urine Nitrite Urine Bilirubin Urine Urobilinogen Ur Leukocyte Esterase RPR Titer Nonreactive no inflammation or osign of infection no ln Assessment: 03/04/17 12:25 sterile oteitis media, f/u pcp if hearing does not improve, may need ent appointmen breezy montero
[2017-03-04] MEDS: ACETAMINOPHEN 325 MG TABLET (FP) PO PRN (13:05)
[2017-03-04] MEDS: MAGNESIUM CITRATE 300 ML BOTTLE PO PRN (15:26)
[2017-03-04] MEDS: DOCUSATE SODIUM 100 MG CAPSULE (FP) PO SCH (22:00)
[2017-03-04] MEDS: SENNOSIDES 8.6MG TABLET (FP) PO SCH (22:01)
[2017-03-04] MEDS: traZODone HCL 50 MG TABLET (FP) PO SCH (22:01)
[2017-03-04] MEDS: AMITRIPTYLINE HCL 25 MG TABLET (FP) PO SCH (22:01)
[2017-03-04] MEDS: THIAMINE HCL 100 MG TABLET (FP) PO SCH (22:02)
[2017-03-05] MEDS: hydrOXYzine HCL 25 MG TABLET (FP) PO PRN ×2 (01:35→10:44)
[2017-03-05] MEDS: GABAPENTIN 400 MG CAPSULE (FP) PO SCH ×3 (06:14→21:14)
[2017-03-05] MEDS: NAPROXEN 500 MG TABLET (FP) PO SCH ×2 (10:43→21:15)
[2017-03-05] MEDS: SERTRALINE HCL 50 MG TABLET (FP) PO SCH (10:43)
[2017-03-05] MEDS: PANTOPRAZOLE 40 MG TABLET (FP) PO SCH (10:43)
[2017-03-05] MEDS: PRENATAL VITAMINS W/ FOLIC ACID TABLET (FP) PO SCH (10:43)
[2017-03-05] MEDS: ZINC SULFATE 220 MG CAPSULE (FP) PO SCH (10:43)
[2017-03-05] MEDS: amLODIPine BESYLATE 5 MG TABLET (FP) PO SCH (10:46)
[2017-03-05] MEDS: TOLNAFTATE 1% CREAM 15 GM TUBE TP SCH ×2 (10:46→21:15)
[2017-03-05] MEDS: SENNOSIDES 8.6MG TABLET (FP) PO SCH (21:13)
[2017-03-05] MEDS: DOCUSATE SODIUM 100 MG CAPSULE (FP) PO SCH (21:13)
[2017-03-05] MEDS: guaiFENesin/D-METHORPHAN HB 10 ML UNIT-DOSE CUPS PO PRN (21:13)
[2017-03-05] MEDS: traZODone HCL 50 MG TABLET (FP) PO SCH (21:14)
[2017-03-05] MEDS: AMITRIPTYLINE HCL 25 MG TABLET (FP) PO SCH (21:14)
[2017-03-05] MEDS: THIAMINE HCL 100 MG TABLET (FP) PO SCH (21:15)
[2017-03-06] MEDS: hydrOXYzine HCL 25 MG TABLET (FP) PO PRN (02:16)
[2017-03-06] MEDS: GABAPENTIN 400 MG CAPSULE (FP) PO SCH ×3 (06:41→21:37)
[2017-03-06] MEDS: NAPROXEN 500 MG TABLET (FP) PO SCH ×2 (10:27→21:37)
[2017-03-06] MEDS: amLODIPine BESYLATE 5 MG TABLET (FP) PO SCH (10:27)
[2017-03-06] MEDS: PRENATAL VITAMINS W/ FOLIC ACID TABLET (FP) PO SCH (10:27)
[2017-03-06] MEDS: ZINC SULFATE 220 MG CAPSULE (FP) PO SCH (10:27)
[2017-03-06] MEDS: SERTRALINE HCL 50 MG TABLET (FP) PO SCH (10:27)
[2017-03-06] MEDS: PANTOPRAZOLE 40 MG TABLET (FP) PO SCH (10:27)
[2017-03-06] MEDS: TOLNAFTATE 1% CREAM 15 GM TUBE TP SCH ×2 (10:28→21:39)
[2017-03-06] MEDS: AMITRIPTYLINE HCL 25 MG TABLET (FP) PO SCH (21:37)
[2017-03-06] MEDS: THIAMINE HCL 100 MG TABLET (FP) PO SCH (21:37)
[2017-03-06] MEDS: DOCUSATE SODIUM 100 MG CAPSULE (FP) PO SCH (21:38)
[2017-03-06] MEDS: SENNOSIDES 8.6MG TABLET (FP) PO SCH (21:38)
[2017-03-06] MEDS: traZODone HCL 50 MG TABLET (FP) PO SCH (21:38)
[2017-03-07] MEDS: GABAPENTIN 400 MG CAPSULE (FP) PO SCH ×3 (06:15→21:58)
[2017-03-07] MEDS: SERTRALINE HCL 50 MG TABLET (FP) PO SCH (10:36)
[2017-03-07] MEDS: PANTOPRAZOLE 40 MG TABLET (FP) PO SCH (10:37)
[2017-03-07] MEDS: ZINC SULFATE 220 MG CAPSULE (FP) PO SCH (10:37)
[2017-03-07] MEDS: NAPROXEN 500 MG TABLET (FP) PO SCH ×2 (10:37→21:58)
[2017-03-07] MEDS: TOLNAFTATE 1% CREAM 15 GM TUBE TP SCH ×2 (10:37→21:59)
[2017-03-07] MEDS: amLODIPine BESYLATE 5 MG TABLET (FP) PO SCH (10:37)
[2017-03-07] MEDS: PRENATAL VITAMINS W/ FOLIC ACID TABLET (FP) PO SCH (10:37)
[2017-03-07] MEDS: MAGNESIUM CITRATE 300 ML BOTTLE PO PRN (18:40)
[2017-03-07] MEDS: traZODone HCL 50 MG TABLET (FP) PO SCH (21:57)
[2017-03-07] MEDS: DOCUSATE SODIUM 100 MG CAPSULE (FP) PO SCH (21:58)
[2017-03-07] MEDS: SENNOSIDES 8.6MG TABLET (FP) PO SCH (21:58)
[2017-03-07] MEDS: AMITRIPTYLINE HCL 25 MG TABLET (FP) PO SCH (21:58)
[2017-03-07] MEDS: THIAMINE HCL 100 MG TABLET (FP) PO SCH (21:59)
[2017-03-08] MEDS: GABAPENTIN 400 MG CAPSULE (FP) PO SCH ×3 (06:29→21:38)
[2017-03-08] MEDS: ZINC SULFATE 220 MG CAPSULE (FP) PO SCH (10:44)
[2017-03-08] MEDS: PANTOPRAZOLE 40 MG TABLET (FP) PO SCH (10:44)
[2017-03-08] MEDS: SERTRALINE HCL 50 MG TABLET (FP) PO SCH (10:44)
[2017-03-08] MEDS: NAPROXEN 500 MG TABLET (FP) PO SCH ×2 (10:44→21:38)
[2017-03-08] MEDS: PRENATAL VITAMINS W/ FOLIC ACID TABLET (FP) PO SCH (10:44)
[2017-03-08] MEDS: TOLNAFTATE 1% CREAM 15 GM TUBE TP SCH ×2 (10:44→21:40)
[2017-03-08] MEDS: amLODIPine BESYLATE 5 MG TABLET (FP) PO SCH (10:44)
[2017-03-08] MEDS: traZODone HCL 50 MG TABLET (FP) PO SCH (21:38)
[2017-03-08] MEDS: SENNOSIDES 8.6MG TABLET (FP) PO SCH (21:38)
[2017-03-08] MEDS: DOCUSATE SODIUM 100 MG CAPSULE (FP) PO SCH (21:38)
[2017-03-08] MEDS: AMITRIPTYLINE HCL 25 MG TABLET (FP) PO SCH (21:38)
[2017-03-08] MEDS: THIAMINE HCL 100 MG TABLET (FP) PO SCH (21:39)
[2017-03-09] MEDS: hydrOXYzine HCL 25 MG TABLET (FP) PO PRN (00:20)
[2017-03-09] MEDS: GABAPENTIN 400 MG CAPSULE (FP) PO SCH ×3 (06:02→22:07)
[2017-03-09] MEDS: ZINC SULFATE 220 MG CAPSULE (FP) PO SCH (10:51)
[2017-03-09] MEDS: PRENATAL VITAMINS W/ FOLIC ACID TABLET (FP) PO SCH (10:51)
[2017-03-09] MEDS: amLODIPine BESYLATE 5 MG TABLET (FP) PO SCH (10:52)
[2017-03-09] MEDS: TOLNAFTATE 1% CREAM 15 GM TUBE TP SCH ×2 (10:52→22:08)
[2017-03-09] MEDS: SERTRALINE HCL 50 MG TABLET (FP) PO SCH (10:52)
[2017-03-09] MEDS: PANTOPRAZOLE 40 MG TABLET (FP) PO SCH (10:52)
[2017-03-09] MEDS: NAPROXEN 500 MG TABLET (FP) PO SCH ×2 (10:52→22:07)
[2017-03-09] MEDS: ACETAMINOPHEN 325 MG TABLET (FP) PO PRN (13:51)
[2017-03-09] MEDS: DOCUSATE SODIUM 100 MG CAPSULE (FP) PO SCH (22:06)
[2017-03-09] MEDS: SENNOSIDES 8.6MG TABLET (FP) PO SCH (22:06)
[2017-03-09] MEDS: traZODone HCL 50 MG TABLET (FP) PO SCH (22:07)
[2017-03-09] MEDS: AMITRIPTYLINE HCL 25 MG TABLET (FP) PO SCH (22:07)
[2017-03-09] MEDS: THIAMINE HCL 100 MG TABLET (FP) PO SCH (22:07)
[2017-03-10] MEDS: GABAPENTIN 400 MG CAPSULE (FP) PO SCH (06:20)
[2017-03-10 06:58] VITALS: BP 106/74; PULSE 89; TEMP 97.8
--- NOTE | 2017-03-10 09:58 | PN ---
Psychiatric Progress Note Vital Signs: Vital Signs Period Temp Pulse Resp BP Sys/Moore Pulse Ox Last 24 Hr 97.8 F 89-109 18-20 106-131/74-79 Date of Session: 03/10/17 Chief Complaint:: discharge visit HPI: Patient is addressing alcoohol dependence comrbid PTSD, Panic disorder with agoraphobia and Bipolar II disorder. ROS: HTN medicaly managed. Current Medications: Active Medications Generic Name Dose Route Start Last Admin Trade Name Freq PRN Reason Stop Dose Admin Acetaminophen 650 mg 02/18/17 16:15 03/09/17 13:51 Tylenol - PO 650 mg Q4H PRN Administration PAIN Al Hydroxide/Mg Hydroxide 30 ml 02/18/17 16:15 02/25/17 07:37 Mylanta Oral Suspension - PO 30 ml Q6H PRN Administration DYSPEPSIA Amitriptyline HCl 25 mg 02/25/17 22:00 03/09/17 22:07 Elavil - PO 25 mg HS CHRISTOS Administration Amlodipine Besylate 5 mg 02/19/17 10:00 03/09/17 10:52 Norvasc - PO 5 mg DAILY CHRISTOS Administration Buspirone HCl 15 mg 03/03/17 22:00 03/10/17 06:20 Buspar - PO 15 mg TID CHRISTOS Administration Docusate Sodium 300 mg 02/26/17 22:00 03/09/17 22:06 Colace - PO 300 mg HS CHRISTOS Administration Eucalyptus/Menthol/Phenol/Sorbitol 1 each 02/18/17 16:15 02/20/17 08:36 Cepastat Lozenge - MM 1 each Q4H PRN Administration SORE THROAT Gabapentin 400 mg 02/25/17 11:15 03/10/17 06:20 Neurontin - PO 400 mg TID CHRISTOS Administration Guaifenesin 10 ml 02/18/17 16:15 03/05/17 21:13 Robitussin Dm - PO 10 ml Q6H PRN Administration COUGH Hydroxyzine HCl 50 mg 02/27/17 15:13 03/09/17 00:20 Atarax - PO 50 mg TID PRN Administration FOR ITCHING Loperamide HCl 4 mg 02/18/17 16:15 Imodium - PO Q6H PRN DIARRHEA Magnesium Citrate 300 ml 02/18/17 16:15 03/07/17 18:40 Citroma - PO 300 ml Q48H PRN Administration CONSTIPATION Magnesium Hydroxide 30 ml 02/18/17 16:15 02/26/17 10:50 Milk Of Magnesia - PO 30 ml DAILY PRN Administration CONSTIPATION Naproxen 500 mg 02/25/17 11:15 03/09/17 22:07 Naprosyn - PO 500 mg BID CHRISTOS Administration Pantoprazole Sodium 40 mg 02/25/17 11:15 03/09/17 10:52 Protonix - PO 40 mg DAILY CHRISTOS Administration Multivit/Folic Acid/Iron 1 tab 02/19/17 10:00 03/09/17 10:51 Vitamins (Sjr) - PO 1 tab DAILY CHRISTOS Administration Pseudoephedrine/Triprolidine 1 combo 02/18/17 16:15 Actifed - PO TID PRN NASAL CONGESTION Senna 2 tab 03/02/17 22:00 03/09/17 22:06 Senna - PO 2 tab HS CHRISTOS Administration Sertraline HCl 100 mg 02/19/17 10:30 03/09/17 10:52 Zoloft - PO 100 mg DAILY CHRISTOS Administration Simethicone 80 mg 03/02/17 10:33 03/04/17 10:24 Mylicon - PO 80 mg Q4H PRN Administration DYSPEPSIA Thiamine HCl 100 mg 02/18/17 22:00 03/09/17 22:07 Vitamin B1 - PO 100 mg HS CHRISTOS Administration Tolnaftate 1 applic 02/19/17 07:30 03/09/17 22:08 Tinactin 1% Cream - TP Not Given BID CHRISTOS Trazodone HCl 150 mg 02/26/17 22:00 03/09/17 22:07 Desyrel - PO 150 mg HS CHRISTOS Administration Zinc Sulfate 220 mg 02/19/17 10:00 03/09/17 10:51 Orazinc - PO 220 mg DAILY CHRISTOS Administration Current Side Effect: No Lab tests ordered: No Lab tests reviewed: Yes Provider note:: Patient has completed today his treatment and met his radha,s will continue to address his issues at [facility]. Patient gained insights into his addiction, understands the negative consequences drinking, verbalized his resolution to continue maintain abstinence and to follow every aspects of his aftercare plans. Medications Buspar, Zoloft, Trazodone well tolerated, patient continue to finding that treatment was effective in terms of anxiety reduction, sleep improvement and mood stabilizations, scripts provided for 30 days, patient was encouraged to take medications as directed and f/u with his medical appointments, patient is stable for discharge today. Total face to face time:: 35 Mental Status Exam - Mental Status Exam Alert and Oriented to: Time, Place, Person Cognitive Function: Good Patient Appearance: Well Groomed Mood: Hopeful Affect: Appropriate, Mood Congruent Patient Behavior: Appropriate, Cooperative Speech Pattern: Clear, Appropriate Voice Loudness: Normal Thought Process: Intact, Goal Oriented Thought Disorder: Not Present Hallucinations: Denies Suicidal Ideation: Denies Homicidal Ideation: Denies Insight/Judgement: Fair Sleep: Fair Appetite: Fair Muscle strength/Tone: Normal Gait/Station: Normal Psychiatric Treatment Plan - Problem List (1) Alcohol dependence Current Visit: No (2) Bipolar II disorder Current Visit: No (3) PTSD (post-traumatic stress disorder) Current Visit: No (4) Panic disorder with agoraphobia Current Visit: No
[2017-03-10] MEDS: SERTRALINE HCL 50 MG TABLET (FP) PO SCH (10:13)
[2017-03-10] MEDS: ZINC SULFATE 220 MG CAPSULE (FP) PO SCH (10:13)
[2017-03-10] MEDS: PANTOPRAZOLE 40 MG TABLET (FP) PO SCH (10:13)
[2017-03-10] MEDS: PRENATAL VITAMINS W/ FOLIC ACID TABLET (FP) PO SCH (10:13)
[2017-03-10] MEDS: amLODIPine BESYLATE 5 MG TABLET (FP) PO SCH (10:13)
[2017-03-10] MEDS: NAPROXEN 500 MG TABLET (FP) PO SCH (10:13)
[2017-03-10] MEDS: TOLNAFTATE 1% CREAM 15 GM TUBE TP SCH (10:14)
== END 2017-03-10 10:26 | disposition home or self-care (01) | DRG 772 ==
LOC: YASAS 13:19 → Y5N 16:40
PROVIDERS: ADMIT Psychiatry & Neurology Psychiatry; ATTEND Psychiatry & Neurology Psychiatry
PROC: HZ41ZZZ Group Counseling for Substance Abuse Treatment, Behavioral (ICD-10-PCS; principal; 2017-02-18)
DX: F10.20 Alcohol dependence, uncomplicated (principal); F31.81 Bipolar II disorder; F43.10 Post-traumatic stress disorder, unspecified; F40.01 Agoraphobia with panic disorder; I10 Essential (primary) hypertension; G40.509 Epileptic seizures related to external causes, not intractable, without status epilepticus
CPT/HCPCS: 36415; 80053; 81003; 85027; 86593; 90688; 90732; 93005; 93010; G0008; G0009

== ENCOUNTER 2018-05-01 10:33 | Inpatient (IN) | payer OTHER ==
[2018-05-01 11:32] VITALS: BMI 30.5
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
[2018-05-01] MEDS ORDERED: MAGNESIUM CITRATE 300 ML BOTTLE PO PRN (12:22)
[2018-05-01] MEDS ORDERED: MAG HYDROX/AL HYDROX/SIMETH 30 ML UNIT-DOSE CUP PO PRN (12:22)
[2018-05-01] MEDS ORDERED: P-EPHED 60MG/TRIPROLIDI 2.5MG TABLET PO PRN (12:22)
[2018-05-01] MEDS ORDERED: ACETAMINOPHEN 325 MG TABLET (FP) PO PRN (12:22)
[2018-05-01] MEDS ORDERED: MAGNESIUM HYDROX 2400MG/30ML ORAL SUSPENSION 30 ML CUP PO PRN (12:22)
[2018-05-01] MEDS ORDERED: IBUPROFEN 400 MG TABLET (FP) PO PRN (12:22)
[2018-05-01] MEDS ORDERED: MENTHOL/PHENOL 1 EACH UD MM PRN (12:22)
[2018-05-01] MEDS ORDERED: LOPERAMIDE HCL 2 MG CAPSULE PO PRN (12:22)
[2018-05-01] MEDS: chlordiazePOXIDE HCL 25 MG CAPSULE PO PRN (15:17)
[2018-05-01] MEDS: chlordiazePOXIDE HCL 25 MG CAPSULE PO SCH ×2 (17:06→22:16)
[2018-05-01 19:41] LABS: URINE APPEARANCE TURBID; URINE BILIRUBIN NEGATIVE (<2.0 mg/dL); URINE COLOR AMBER; URINE GLUCOSE (UA) NEGATIVE (NEGATIVE); URINE KETONE NEGATIVE (NEGATIVE); URINE LEUK ESTERASE NEGATIVE (NEGATIVE); URINE NITRITE NEGATIVE (NEGATIVE); URINE PROTEIN 1+ (NEGATIVE); URINE UROBILINOGEN NEGATIVE mg/dL (0.2-1.0)
[2018-05-01 19:45] LABS: EPI CELLS RARE /HPF (FEW); URINE MUCUS FEW
[2018-05-01] MEDS: MELATONIN 5 MG TABLETS PO PRN (22:16)
[2018-05-01] MEDS: THIAMINE HCL 100 MG TABLET (FP) PO SCH (22:16)
[2018-05-02] MEDS: hydrOXYzine PAMOATE 50 MG CAPSULE (FP) PO PRN ×2 (00:50→17:04)
[2018-05-02] MEDS: chlordiazePOXIDE HCL 25 MG CAPSULE PO PRN ×2 (00:50→12:36)
[2018-05-02] MEDS: chlordiazePOXIDE HCL 25 MG CAPSULE PO SCH ×4 (05:25→22:06)
[2018-05-02] MEDS: amLODIPine BESYLATE 5 MG TABLET (FP) PO SCH (10:12)
[2018-05-02] MEDS: PRENATAL VITAMINS W/ FOLIC ACID TABLET (FP) PO SCH (10:12)
[2018-05-02 10:27] LABS: ALBUMIN 3.5 g/dl (3.4-5.0); ALK PHOS 68 U/L (45-117); ANION GAP 10 MMOL/L (8-16); BILIRUBIN,TOTAL 0.7 mg/dL (0.2-1); BLOOD UREA NITROGEN 11 mg/dL (7-18); CALCIUM 8.4 mg/dL (8.5-10.1); CHLORIDE 104 mmol/L (98-107); CO2 27 mmol/L (21-32); CREATININE 0.8 mg/dL (0.55-1.3); GLUCOSE,RANDOM 82 mg/dL (74-106); POTASSIUM 3.5 mmol/L (3.5-5.1); SGOT/AST 28 U/L (15-37); SGPT/ALT 38 U/L (13-61); SODIUM 142 mmol/L (136-145); TOT PROT 6.3 g/dl (6.4-8.2)
[2018-05-02 10:45] LABS: HEMATOCRIT 36.7 % (35.4-49); HEMOGLOBIN 12.5 GM/dL (11.7-16.9); MCH 30.8 pg (25.7-33.7); MCHC 34.1 g/dl (32.0-35.9); MEAN CELL VOLUME 90.4 fl (80-96); MEAN PLT VOLUME 7.5 fl (7.5-11.1); PLATELET COUNT 182 K/MM3 (134-434); RBC 4.06 M/mm3 (4.00-5.60); RDW 16.2 % (11.9-15.9); WHITE BLOOD COUNT 3.8 K/mm3 (4.0-10.0)
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
[2018-05-02] MEDS: SERTRALINE HCL 50 MG TABLET (FP) PO SCH (11:54)
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
[2018-05-02] MEDS: AMOXICILLIN 500 MG CAPSULE (FP) PO SCH ×2 (14:52→22:06)
--- NOTE | 2018-05-02 15:45 | EKG ---
Test Reason : Blood Pressure : / mmHG Vent. Rate : 089 BPM Atrial Rate : 089 BPM P-R Int : 164 ms QRS Dur : 100 ms QT Int : 368 ms P-R-T Axes : 061 018 031 degrees QTc Int : 447 ms SINUS RHYTHM WITH PREMATURE ATRIAL COMPLEXES OTHERWISE NORMAL ECG WHEN COMPARED WITH ECG OF 18-FEB-2017 23:02, PREMATURE ATRIAL COMPLEXES ARE NOW PRESENT Confirmed by PATEL VICENTE MD ([id number]) on 05/02/2018 3:44:55 PM Referred By: Confirmed By:PATEL VICENTE MD
[2018-05-02] MEDS: THIAMINE HCL 100 MG TABLET (FP) PO SCH (22:06)
[2018-05-02] MEDS: QUEtiapine FUMARATE 100 MG TABLET (FP) PO SCH (22:06)
[2018-05-02] MEDS: MELATONIN 5 MG TABLETS PO PRN (22:07)
[2018-05-03] MEDS: chlordiazePOXIDE HCL 25 MG CAPSULE PO SCH ×2 (05:32→10:02)
[2018-05-03] MEDS: PRENATAL VITAMINS W/ FOLIC ACID TABLET (FP) PO SCH (10:02)
[2018-05-03] MEDS: amLODIPine BESYLATE 5 MG TABLET (FP) PO SCH (10:02)
[2018-05-03] MEDS: SERTRALINE HCL 50 MG TABLET (FP) PO SCH (10:02)
[2018-05-03] MEDS: AMOXICILLIN 500 MG CAPSULE (FP) PO SCH ×2 (10:02→22:09)
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
[2018-05-03] MEDS: chlordiazePOXIDE 5 MG CAPSULE PO SCH ×2 (17:05→22:09)
[2018-05-03] MEDS: THIAMINE HCL 100 MG TABLET (FP) PO SCH (22:09)
[2018-05-03] MEDS: MELATONIN 5 MG TABLETS PO PRN (22:09)
[2018-05-03] MEDS: QUEtiapine FUMARATE 100 MG TABLET (FP) PO SCH (22:09)
[2018-05-03] MEDS: guaiFENesin/D-METHORPHAN HB 10 ML UNIT-DOSE CUPS PO PRN (22:41)
[2018-05-04] MEDS: chlordiazePOXIDE HCL 25 MG CAPSULE PO PRN (02:13)
[2018-05-04] MEDS: chlordiazePOXIDE 5 MG CAPSULE PO SCH ×2 (05:19→10:25)
[2018-05-04] MEDS: guaiFENesin/D-METHORPHAN HB 10 ML UNIT-DOSE CUPS PO PRN (05:21)
--- NOTE | 2018-05-04 10:06 | PN ---
[facility] Progress Note (SOAP) Subjective: feeling better mild tremor less sweating discuss aftercare with staff Objective: 05/04/18 10:05 Vital Signs Temperature 97.0 F L 05/04/18 09:24 Pulse Rate 71 05/04/18 09:24 Respiratory Rate 18 05/04/18 09:24 Blood Pressure 104/64 05/04/18 09:24 O2 Sat by Pulse Oximetry (%) Laboratory Last Values WBC 3.8 K/mm3 (4.0-10.0) L 05/02/18 07:50 RBC 4.06 M/mm3 (4.00-5.60) 05/02/18 07:50 Hgb 12.5 GM/dL (11.7-16.9) 05/02/18 07:50 Hct 36.7 % (35.4-49) 05/02/18 07:50 MCV 90.4 fl (80-96) 05/02/18 07:50 MCH 30.8 pg (25.7-33.7) 05/02/18 07:50 MCHC 34.1 g/dl (32.0-35.9) 05/02/18 07:50 RDW 16.2 % (11.9-15.9) H 05/02/18 07:50 Plt Count 182 K/MM3 (134-434) D 05/02/18 07:50 MPV 7.5 fl (7.5-11.1) 05/02/18 07:50 Sodium 142 mmol/L (136-145) 05/02/18 07:50 Potassium 3.5 mmol/L (3.5-5.1) 05/02/18 07:50 Chloride 104 mmol/L (98-107) 05/02/18 07:50 Carbon Dioxide 27 mmol/L (21-32) 05/02/18 07:50 Anion Gap 10 MMOL/L (8-16) 05/02/18 07:50 BUN 11 mg/dL (7-18) 05/02/18 07:50 Creatinine 0.8 mg/dL (0.55-1.3) 05/02/18 07:50 Creat Clearance w eGFR > 60 (>60) 05/02/18 07:50 Random Glucose 82 mg/dL (74-106) 05/02/18 07:50 Calcium 8.4 mg/dL (8.5-10.1) L 05/02/18 07:50 Total Bilirubin 0.7 mg/dL (0.2-1) 05/02/18 07:50 AST 28 U/L (15-37) 05/02/18 07:50 ALT 38 U/L (13-61) 05/02/18 07:50 Alkaline Phosphatase 68 U/L (45-117) 05/02/18 07:50 Total Protein 6.3 g/dl (6.4-8.2) L 05/02/18 07:50 Albumin 3.5 g/dl (3.4-5.0) 05/02/18 07:50 Urine Color Shasha 05/01/18 15:37 Urine Appearance Turbid 05/01/18 15:37 Urine pH 6.0 (5.0-8.0) 05/01/18 15:37 Ur Specific [place] 1.025 (1.010-1.035) 05/01/18 15:37 Urine Protein 1+ (NEGATIVE) H 05/01/18 15:37 Urine Glucose (UA) Negative (NEGATIVE) 05/01/18 15:37 Urine Ketones Negative (NEGATIVE) 05/01/18 15:37 Urine Blood Negative (NEGATIVE) 05/01/18 15:37 Urine Nitrite Negative (NEGATIVE) 05/01/18 15:37 Urine Bilirubin Negative (<2.0 mg/dL) 05/01/18 15:37 Urine Urobilinogen Negative mg/dL (0.2-1.0) 05/01/18 15:37 Ur Leukocyte Esterase Negative (NEGATIVE) 05/01/18 15:37 Urine WBC (Auto) 1 /hpf (3-5) 05/01/18 15:37 Urine RBC (Auto) None /hpf (0-3) 05/01/18 15:37 Ur Epithelial Cells Rare /HPF (FEW) 05/01/18 15:37 Urine Mucus Few 05/01/18 15:37 RPR Titer Nonreactive (NONREACTIVE) 05/02/18 07:50 lab noted Assessment: 05/04/18 10:06 mild withdrawal sx Plan: continue detox
[2018-05-04] MEDS: AMOXICILLIN 500 MG CAPSULE (FP) PO SCH ×2 (10:26→22:11)
[2018-05-04] MEDS: PRENATAL VITAMINS W/ FOLIC ACID TABLET (FP) PO SCH (10:26)
[2018-05-04] MEDS: amLODIPine BESYLATE 5 MG TABLET (FP) PO SCH (10:27)
[2018-05-04] MEDS: SERTRALINE HCL 50 MG TABLET (FP) PO SCH (10:29)
[2018-05-04] MEDS: hydrOXYzine PAMOATE 50 MG CAPSULE (FP) PO PRN ×2 (13:25→20:16)
[2018-05-04] MEDS: chlordiazePOXIDE HCL 10 MG CAPSULE PO SCH ×2 (17:20→22:11)
[2018-05-04] MEDS: QUEtiapine FUMARATE 100 MG TABLET (FP) PO SCH (22:11)
[2018-05-04] MEDS: MELATONIN 5 MG TABLETS PO PRN (22:11)
[2018-05-04] MEDS: THIAMINE HCL 100 MG TABLET (FP) PO SCH (22:11)
[2018-05-05] MEDS: chlordiazePOXIDE HCL 10 MG CAPSULE PO SCH ×2 (06:00→10:28)
[2018-05-05 09:18] VITALS: BP 106/72; PULSE 126; TEMP 97.5
[2018-05-05] MEDS: hydrOXYzine PAMOATE 50 MG CAPSULE (FP) PO PRN (09:54)
[2018-05-05] MEDS: SERTRALINE HCL 50 MG TABLET (FP) PO SCH (09:55)
[2018-05-05] MEDS: amLODIPine BESYLATE 5 MG TABLET (FP) PO SCH (09:55)
[2018-05-05] MEDS: AMOXICILLIN 500 MG CAPSULE (FP) PO SCH (09:55)
[2018-05-05] MEDS: PRENATAL VITAMINS W/ FOLIC ACID TABLET (FP) PO SCH (09:55)
--- NOTE | 2018-05-05 13:58 | DS ---
[facility] Detox Discharge Summary Admission Date: 05/01/18 Discharge Date: 05/05/18 - History Present History: Alcohol Dependence Additional Comments: 42 years old male admitted on 05/01/18 for alcohol withdrawal stabilization completed detox regimen aftercare help center out patient chemical rehab Pertinent Past History: encourage the patient brings medication list to aftercare appointment informed update medication list when changes of medication recommend the patient brings in bottles of medication when follow up appointment discuss alcohol related cardiovascular issues - Physical Exam Results Vital Signs: Vital Signs Temperature 97.5 F L 05/05/18 09:18 Pulse Rate 126 H 05/05/18 09:18 Respiratory Rate 18 05/05/18 09:18 Blood Pressure 106/72 05/05/18 09:18 O2 Sat by Pulse Oximetry (%) Pertinent Admission Physical Exam Findings: alcohol withdrawal sx Laboratory Last Values WBC 3.8 K/mm3 (4.0-10.0) L 05/02/18 07:50 RBC 4.06 M/mm3 (4.00-5.60) 05/02/18 07:50 Hgb 12.5 GM/dL (11.7-16.9) 05/02/18 07:50 Hct 36.7 % (35.4-49) 05/02/18 07:50 MCV 90.4 fl (80-96) 05/02/18 07:50 MCH 30.8 pg (25.7-33.7) 05/02/18 07:50 MCHC 34.1 g/dl (32.0-35.9) 05/02/18 07:50 RDW 16.2 % (11.9-15.9) H 05/02/18 07:50 Plt Count 182 K/MM3 (134-434) D 05/02/18 07:50 MPV 7.5 fl (7.5-11.1) 05/02/18 07:50 Sodium 142 mmol/L (136-145) 05/02/18 07:50 Potassium 3.5 mmol/L (3.5-5.1) 05/02/18 07:50 Chloride 104 mmol/L (98-107) 05/02/18 07:50 Carbon Dioxide 27 mmol/L (21-32) 05/02/18 07:50 Anion Gap 10 MMOL/L (8-16) 05/02/18 07:50 BUN 11 mg/dL (7-18) 05/02/18 07:50 Creatinine 0.8 mg/dL (0.55-1.3) 05/02/18 07:50 Creat Clearance w eGFR > 60 (>60) 05/02/18 07:50 Random Glucose 82 mg/dL (74-106) 05/02/18 07:50 Calcium 8.4 mg/dL (8.5-10.1) L 05/02/18 07:50 Total Bilirubin 0.7 mg/dL (0.2-1) 05/02/18 07:50 AST 28 U/L (15-37) 05/02/18 07:50 ALT 38 U/L (13-61) 05/02/18 07:50 Alkaline Phosphatase 68 U/L (45-117) 05/02/18 07:50 Total Protein 6.3 g/dl (6.4-8.2) L 05/02/18 07:50 Albumin 3.5 g/dl (3.4-5.0) 05/02/18 07:50 Urine Color Shasha 05/01/18 15:37 Urine Appearance Turbid 05/01/18 15:37 Urine pH 6.0 (5.0-8.0) 05/01/18 15:37 Ur Specific [place] 1.025 (1.010-1.035) 05/01/18 15:37 Urine Protein 1+ (NEGATIVE) H 05/01/18 15:37 Urine Glucose (UA) Negative (NEGATIVE) 05/01/18 15:37 Urine Ketones Negative (NEGATIVE) 05/01/18 15:37 Urine Blood Negative (NEGATIVE) 05/01/18 15:37 Urine Nitrite Negative (NEGATIVE) 05/01/18 15:37 Urine Bilirubin Negative (<2.0 mg/dL) 05/01/18 15:37 Urine Urobilinogen Negative mg/dL (0.2-1.0) 05/01/18 15:37 Ur Leukocyte Esterase Negative (NEGATIVE) 05/01/18 15:37 Urine WBC (Auto) 1 /hpf (3-5) 05/01/18 15:37 Urine RBC (Auto) None /hpf (0-3) 05/01/18 15:37 Ur Epithelial Cells Rare /HPF (FEW) 05/01/18 15:37 Urine Mucus Few 05/01/18 15:37 RPR Titer Nonreactive (NONREACTIVE) 05/02/18 07:50 lab noted - Treatment Hospital Course: Detox Protocol Followed, Detoxed Safely, Responded well, Discharged Condition Good, Rehab Referral Accepted Patient has Accepted a Rehab Referral to: as per counselor arrangement - Medication Discharge Medications: Ambulatory Orders Gabapentin [Neurontin -] 400 mg PO TID #90 capsule 03/04/17 Amlodipine Besylate [Norvasc -] 5 mg PO DAILY #30 tablet 03/09/17 Buspirone HCl [Buspar -] 15 mg PO TID #90 tablet 03/10/17 Sertraline HCl [Zoloft -] 100 mg PO DAILY #60 tablet 03/10/17 traZODone HCL [Desyrel -] 150 mg PO HS 150 Days #150 tablet 03/10/17 Amlodipine Besylate [Norvasc -] 5 mg PO DAILY #14 tablet 05/04/18 Amoxicillin - [Amoxicillin 500mg Capsule -] 500 mg PO BID #7 capsule 05/04/18 - Diagnosis (1) Hypertension Status: Chronic Qualifiers: Hypertension type: essential hypertension Qualified Code(s): I10 - Essential (primary) hypertension (2) Alcohol dependence with uncomplicated withdrawal Status: Acute (3) Nicotine dependence Status: Acute Qualifiers: Nicotine product type: cigarettes Substance use status: in withdrawal Qualified Code(s): F17.213 - Nicotine dependence, cigarettes, with withdrawal - AMA Did Patient Leave Against Medical Advice: No
== END 2018-05-05 10:10 | disposition home or self-care (01) | DRG 775 ==
LOC: YASAS 10:33 → Y3N 11:46
PROVIDERS: ADMIT Neuromusculoskeletal Medicine & OMM; ATTEND Neuromusculoskeletal Medicine & OMM
PROC: HZ2ZZZZ Detoxification Services for Substance Abuse Treatment (ICD-10-PCS; principal; 2018-05-01)
DX: F10.230 Alcohol dependence with withdrawal, uncomplicated (principal); F10.220 Alcohol dependence with intoxication, uncomplicated; F17.213 Nicotine dependence, cigarettes, with withdrawal; F43.10 Post-traumatic stress disorder, unspecified; F40.01 Agoraphobia with panic disorder; F31.81 Bipolar II disorder; I10 Essential (primary) hypertension; M54.5 Low back pain; G89.29 Other chronic pain; G40.909 Epilepsy, unspecified, not intractable, without status epilepticus; E66.9 Obesity, unspecified; Z68.30 Body mass index [BMI] 30.0-30.9, adult
CPT/HCPCS: 36415; 80053; 81003; 81015; 85027; 86593; 93005; 93010

== ENCOUNTER 2020-08-14 16:47 | Inpatient (IN) | payer OTHER ==
[2020-08-14 19:03] VITALS: BMI 34.8
[2020-08-14] MEDS ORDERED: ACETAMINOPHEN 325 MG TABLET (FP) PO PRN ×2 (19:40)
[2020-08-14] MEDS ORDERED: BISMUTH SUBSALICYLATE 524 MG/30 ML PO PRN (19:40)
[2020-08-14] MEDS ORDERED: NICOTINE POLACRILEX 2 MG GUM BUC PRN (19:40)
[2020-08-14] MEDS ORDERED: MAGNESIUM HYDROX 2400MG/30ML ORAL SUSPENSION 30 ML CUP PO PRN (19:40)
[2020-08-14] MEDS ORDERED: IBUPROFEN 400 MG TABLET (FP) PO PRN (19:40)
[2020-08-14] MEDS ORDERED: MAG HYDROX/AL HYDROX/SIMETH 30 ML UNIT-DOSE CUP PO PRN (19:40)
[2020-08-14] MEDS ORDERED: MENTHOL/PHENOL 1 EACH UD MM PRN (19:40)
[2020-08-14] MEDS ORDERED: ONDANSETRON *ODT* 4 MG TABLET SL PRN (19:40)
[2020-08-14] MEDS ORDERED: MAGNESIUM CITRATE 300 ML BOTTLE PO PRN (19:40)
[2020-08-14] MEDS ORDERED: chlordiazePOXIDE HCL 25 MG CAPSULE PO PRN (19:49)
[2020-08-14] MEDS: amLODIPine BESYLATE 5 MG TABLET (FP) PO SCH (20:55)
[2020-08-14] MEDS: chlordiazePOXIDE HCL 25 MG CAPSULE PO SCH (22:01)
[2020-08-14] MEDS: THIAMINE HCL 100 MG TABLET (FP) PO SCH (22:01)
[2020-08-14] MEDS: MELATONIN 5 MG TABLETS PO SCH (22:02)
[2020-08-15] MEDS: chlordiazePOXIDE HCL 25 MG CAPSULE PO SCH ×4 (05:16→22:00)
[2020-08-15 10:14] LABS: HEMATOCRIT 39.3 % (35.4-49); HEMOGLOBIN 13.4 GM/dL (11.7-16.9); MCH 29.3 pg (25.7-33.7); MCHC 34.1 g/dl (32.0-35.9); MEAN CELL VOLUME 85.9 fl (80-96); MEAN PLT VOLUME 7.8 fl (7.5-11.1); PLATELET COUNT 262 K/MM3 (134-434); RBC 4.58 M/mm3 (4.00-5.60); RDW 15.6 % (11.9-15.9)
[2020-08-15 10:17] LABS: ALBUMIN 3.2 g/dl (3.4-5.0); BLOOD UREA NITROGEN 4.5 mg/dL (7-18)
[2020-08-15 10:19] LABS: CALCIUM 8.6 mg/dL (8.5-10.1)
[2020-08-15 10:21] LABS: CREATININE 0.8 mg/dL (0.55-1.3)
[2020-08-15 10:24] LABS: BILIRUBIN,TOTAL 0.5 mg/dL (0.2-1); TOT PROT 6.1 g/dl (6.4-8.2)
[2020-08-15] MEDS: PRENATAL VITAMINS W/ FOLIC ACID TABLET (FP) PO SCH (10:28)
[2020-08-15] MEDS: amLODIPine BESYLATE 5 MG TABLET (FP) PO SCH (10:29)
[2020-08-15] MEDS: hydrOXYzine PAMOATE 25 MG CAPSULE (FP) PO PRN ×2 (17:47→22:01)
[2020-08-15] MEDS: THIAMINE HCL 100 MG TABLET (FP) PO SCH (22:00)
[2020-08-15] MEDS: MELATONIN 5 MG TABLETS PO SCH (22:01)
[2020-08-16] MEDS: chlordiazePOXIDE HCL 25 MG CAPSULE PO SCH ×4 (05:34→22:14)
[2020-08-16] MEDS: hydrOXYzine PAMOATE 25 MG CAPSULE (FP) PO PRN (10:02)
[2020-08-16] MEDS: PRENATAL VITAMINS W/ FOLIC ACID TABLET (FP) PO SCH (10:04)
[2020-08-16] MEDS: amLODIPine BESYLATE 5 MG TABLET (FP) PO SCH (10:04)
[2020-08-16] MEDS: OLANZapine 7.5 MG TABLET PO SCH (22:13)
[2020-08-16] MEDS: SUVOREXANT 10 MG TABLET PO PRN (22:16)
[2020-08-16] MEDS: THIAMINE HCL 100 MG TABLET (FP) PO SCH (22:16)
[2020-08-17] MEDS ORDERED: chlordiazePOXIDE HCL 10 MG CAPSULE PO PRN
[2020-08-17] MEDS: chlordiazePOXIDE HCL 10 MG CAPSULE PO SCH ×4 (05:56→22:28)
[2020-08-17] MEDS: hydrOXYzine PAMOATE 25 MG CAPSULE (FP) PO PRN ×3 (05:58→14:06)
[2020-08-17] MEDS: PRENATAL VITAMINS W/ FOLIC ACID TABLET (FP) PO SCH (10:04)
[2020-08-17] MEDS: amLODIPine BESYLATE 5 MG TABLET (FP) PO SCH (10:04)
[2020-08-17] MEDS: METHOCARBAMOL 500 MG TABLET PO PRN (10:05)
[2020-08-17 10:07] LABS: SARS-CoV-2 NAA Not Detected (Not Detected)
[2020-08-17] MEDS: THIAMINE HCL 100 MG TABLET (FP) PO SCH (22:28)
[2020-08-17] MEDS: SUVOREXANT 10 MG TABLET PO PRN (22:28)
[2020-08-17] MEDS: OLANZapine 7.5 MG TABLET PO SCH (22:28)
[2020-08-18] MEDS: chlordiazePOXIDE HCL 10 MG CAPSULE PO SCH ×2 (05:46→17:12)
[2020-08-18] MEDS: hydrOXYzine PAMOATE 25 MG CAPSULE (FP) PO PRN ×4 (05:47→22:10)
[2020-08-18] MEDS: PRENATAL VITAMINS W/ FOLIC ACID TABLET (FP) PO SCH (10:10)
[2020-08-18] MEDS: amLODIPine BESYLATE 5 MG TABLET (FP) PO SCH (10:10)
[2020-08-18] MEDS: METHOCARBAMOL 500 MG TABLET PO PRN (10:12)
[2020-08-18] MEDS: THIAMINE HCL 100 MG TABLET (FP) PO SCH (22:09)
[2020-08-18] MEDS: OLANZapine 7.5 MG TABLET PO SCH (22:09)
[2020-08-18] MEDS: SUVOREXANT 10 MG TABLET PO PRN (22:10)
[2020-08-19] MEDS ORDERED: chlordiazePOXIDE HCL 10 MG CAPSULE PO ONE (05:00)
[2020-08-19] MEDS: hydrOXYzine PAMOATE 25 MG CAPSULE (FP) PO PRN (05:34)
[2020-08-19 06:12] VITALS: TEMP 97.1
[2020-08-19 09:16] VITALS: BP 125/76; PULSE 79
[2020-08-19] MEDS: PRENATAL VITAMINS W/ FOLIC ACID TABLET (FP) PO SCH (09:27)
[2020-08-19] MEDS: amLODIPine BESYLATE 5 MG TABLET (FP) PO SCH (09:27)
== END 2020-08-19 09:39 | disposition home or self-care (01) | DRG 775 ==
LOC: YASAS 16:47 → Y6N 19:45
PROVIDERS: ADMIT Allergy & Immunology; ATTEND Allergy & Immunology
PROC: HZ2ZZZZ Detoxification Services for Substance Abuse Treatment (ICD-10-PCS; principal; 2020-08-14)
DX: F10.230 Alcohol dependence with withdrawal, uncomplicated (principal); F17.210 Nicotine dependence, cigarettes, uncomplicated; F19.24 Other psychoactive substance dependence with psychoactive substance-induced mood disorder; F31.81 Bipolar II disorder; F41.9 Anxiety disorder, unspecified; F43.10 Post-traumatic stress disorder, unspecified; G40.509 Epileptic seizures related to external causes, not intractable, without status epilepticus; I10 Essential (primary) hypertension; M25.561 Pain in right knee; M25.511 Pain in right shoulder; M54.5 Low back pain; G89.29 Other chronic pain; R76.11 Nonspecific reaction to tuberculin skin test without active tuberculosis
CPT/HCPCS: 36415; 71046-TC-FY; 80053; 85027; 86780; C9803; U0003; U0005